=== PATIENT | female | born 1970 | race Caucasian/White ===

== ENCOUNTER → 2018-04-25 06:33 | Outpatient (CLI) | payer BC, SELFPAY ==
[2018-04-28 12:01] LABS: Cancer Antigen 125 13.1 U/mL (0.0-38.1)
== END ==
PROVIDERS: Family Provider Preventive Medicine Occupational Medicine; PCP Preventive Medicine Occupational Medicine; Visit Provider Internal Medicine Medical Oncology
DX: C56.2 Malignant neoplasm of left ovary (principal)
CPT/HCPCS: 36415; 86304

== ENCOUNTER → 2018-05-18 16:31 | Outpatient (CLI) | payer BC, SELFPAY ==
--- NOTE | 2018-05-18 16:33 | BI_ITS ---
MAMMOGRAPHY - BILATERAL SCREENING 3-D ANIVAL SYNTHESIS REASON FOR EXAM: Female, 47 years old. Bilateral Screening 3-D tomosynthesis PERTINENT HISTORY: No significant family history. TECHNIQUE: 2-D mammograms and 3-D Anival synthesis of the breast (s) were performed. CAD was performed. COMPARISON: 08/05/2016 FINDINGS: The breast composition is composed of scattered fibroglandular density. Scattered benign calcifications are seen. No dense spiculated masses or suspicious microcalcifications are identified. No architectural distortion is identified. There is no skin thickening or retraction. There has been no significant change since the prior study. BI/SCREENING MAMM (CAD), BILAT IMPRESSION: No mammographic signs of malignancy. Routine yearly mammograms recommended. ASSESSMENT CATEGORY: BIRADS Category 2: Benign. A letter regarding these results will be sent to the patient by the facility within 30 days. FOLLOW UP RECOMMENDATION: Yearly follow up mammogram recommended. (A) Approximately 10% of breast cancers are not detected by mammography. A normal mammogram should not delay biopsy of a clinically suspicious abnormality. Electronically Signed: Waldo Boston MD at 7:44 EDT , Service support ,
== END ==
PROVIDERS: Family Provider Physician Assistant; PCP Physician Assistant; Visit Provider Internal Medicine Medical Oncology
DX: Z12.31 Encounter for screening mammogram for malignant neoplasm of breast (principal)
CPT/HCPCS: 77063; 77067

== ENCOUNTER → 2019-06-12 17:30 | Outpatient (CLI) | payer BC, SELFPAY ==
--- NOTE | 2019-06-12 17:30 | BI_ITS ---
MAMMOGRAPHY - BILATERAL SCREENING 3-D TOMOSYNTHESIS REASON FOR EXAM: Female, 48 years old. Bilateral Screening 3-D tomosynthesis PERTINENT HISTORY: No significant family history. TECHNIQUE: 2-D mammograms and 3-D Tomosynthesis of the breast (s) were performed. CAD was performed. COMPARISON: 05/18/2018, 08/05/2016, 08/04/2015 FINDINGS: The breast composition is composed of scattered fibroglandular density. Unremarkable bilateral breast parenchyma are seen. No dense spiculated masses or suspicious microcalcifications are identified. No architectural distortion is identified. There is no skin thickening or retraction. There has been no significant change since the prior study. BI/SCREEN MAMM (CAD) W/ANIVAL BILAT IMPRESSION: No mammographic signs of malignancy. Routine yearly mammograms recommended. ASSESSMENT CATEGORY: BIRADS Category 1: Negative. A letter regarding these results will be sent to the patient by the facility within 30 days. FOLLOW UP RECOMMENDATION: Yearly follow up mammogram recommended. (A) Approximately 10% of breast cancers are not detected by mammography. A normal mammogram should not delay biopsy of a clinically suspicious abnormality. Electronically Signed: Jesse Gutierrez MD at 15:58 EDT Tel [phone], Service support ,
== END ==
PROVIDERS: Family Provider Physician Assistant; PCP Physician Assistant; Referring Provider Internal Medicine Medical Oncology; Visit Provider Internal Medicine Medical Oncology
DX: Z12.31 Encounter for screening mammogram for malignant neoplasm of breast (principal)
CPT/HCPCS: 77063; 77067

== ENCOUNTER → 2019-06-20 06:43 | Outpatient (CLI) | payer BC, SELFPAY ==
[2019-06-21 13:03] LABS: Cancer Antigen 125 15.5 U/mL (0.0-38.1)
== END ==
PROVIDERS: Internal Medicine Medical Oncology; Referring Provider Urology; Visit Provider Urology
DX: C56.9 Malignant neoplasm of unspecified ovary (principal)
CPT/HCPCS: 36415; 86304

== ENCOUNTER → 2020-04-18 11:42 | Outpatient (CLI) | payer BC, SELFPAY ==
[2019-06-28 16:02] VITALS: BMI 30.4
[2020-04-18 15:12] LABS: ALB/GLOB Ratio 0.9 RATIO (0.9-2.4); AST(SGOT) 17 U/L (15-37); Alanine Aminotransfer ALT/SGPT 29 U/L (13-56); Albumin, Serum 3.7 g/dL (3.2-5.0); Alkaline Phosphatase 55 U/L (45-117); Anion Gap 4 (5-15); BUN 11 mg/dL (7-18); BUN/Creat Ratio 13.6 RATIO (10-20); Calcium,Total 9.5 mg/dL (8.5-10.1); Chloride 105 mmol/L (98-107); Cholesterol 213 mg/dL (200); Creatinine, Serum 0.81 mg/dL (0.55-1.02); EST Glomerular Filtration Rate 80 mL/min (>60); Est Glom Filt Rate - Afr Amer 96 mL/min (>60); Globulin 4.1 g/dL (2.2-4.2); Glucose 90 mg/dL (74-106); High Density Lipoprotein 55 mg/dL; Potassium 4.3 mmol/L (3.5-5.1); Protein, Total 7.8 g/dL (6.4-8.2); Sodium Level 139 mmol/L (136-145); Triglycerides 139 mg/dL; Very Low Density Lipoprotein 28 mg/dL (5-40)
== END ==
PROVIDERS: Visit Provider Family Medicine
DX: Z13.220 Encounter for screening for lipoid disorders (principal); Z13.1 Encounter for screening for diabetes mellitus
CPT/HCPCS: 36415; 80053; 80061

== ENCOUNTER → 2020-06-18 16:22 | Outpatient (CLI) | payer BC, SELFPAY ==
[2019-06-28 16:02] VITALS: BMI 30.4
--- NOTE | 2020-06-18 16:22 | BI_ITS ---
MAMMOGRAPHY - BILATERAL SCREENING REASON FOR EXAM: Female, 49 years old. Routine annual screening examination. PERTINENT HISTORY: Non-contributory. TECHNIQUE: Digital bilateral breast anival (3D mammographic acquisition) in the CC and MLO projections. 2-D mediolateral oblique (MLO) and craniocaudad (CC) views of both breasts were obtained. CAD: Full Field Digital Mammography with Computer Added Detection was performed. COMPARISON: Comparison is made with prior study dated 06/12/2019 and 05/18/2018. FINDINGS: Breast Composition: There are scattered areas of fibroglandular density. There are no dominant masses or suspicious calcifications. No other significant abnormalities are identified. There has been no significant change since the prior study. BI/SCREEN MAMM (CAD) W/ANIVAL BILAT IMPRESSION: Stable bilateral screening mammogram. Yearly follow-up mammogram recommended. (A) ASSESSMENT CATEGORY: BIRADS Category 1: Negative. A letter regarding these results will be sent to the patient by the facility within 30 days. Approximately 10% of breast cancers are not detected by mammography. A normal mammogram should not delay biopsy of a clinically suspicious abnormality. [id number] Electronically Signed: Adan Neville, at 8:05 EDT , Service support ,
== END ==
PROVIDERS: PCP Family Medicine; Referring Provider Internal Medicine Medical Oncology; Visit Provider Internal Medicine Medical Oncology
DX: Z12.31 Encounter for screening mammogram for malignant neoplasm of breast (principal); C56.9 Malignant neoplasm of unspecified ovary
CPT/HCPCS: 77063; 77067

== ENCOUNTER → 2020-06-28 09:15 | Outpatient (CLI) | payer BC, SELFPAY ==
[2019-06-28 16:02] VITALS: BMI 30.4
[2020-06-28 10:12] LABS: Absolute Lymphocyte Count 1.79 X10^3/uL (0.83-4.51); Absolute Neutrophil Count 2.3 X10^3/uL (2.0-7.7); Basophil# 0.02 X10^3/uL; Basophil% 0.4 % (0-1); Eosinophil# 0.05 X10^3/uL; Eosinophils% 1.1 % (0-5); Hematocrit 42.8 % (37-47); Hemoglobin 14.2 g/dL (12.0-15.0); Lymphocyte # 1.79 X10^3/ul (4.0); Mean Corp Hgb Conc 33.2 g/dL (32-36); Mean Corpuscular Hgb 30.2 pg (27.0-32.0); Mean Corpuscular Volume 91.1 fL (81-99); Mean Platelet Vol. 10.7 fl (6.2-12.0); Monocyte# 0.36 X10^3/uL; NRBC Flagged by Analyzer 0 % (0-5); Neutrophil # 2.25 X10^3/uL (2.7-7.7); Neutrophil % 50.3 % (47-70); Platelet Count 282 K/mm3 (150-450); RBC Distribution Width SD 40.2 fl (35.1-43.9); White Blood Count 4.5 K/mm3 (4.4-11.0)
[2020-06-28 10:48] LABS: AST(SGOT) 13 U/L (15-37); Alanine Aminotransfer ALT/SGPT 30 U/L (13-56); Albumin, Serum 3.9 g/dL (3.2-5.0); Alkaline Phosphatase 58 U/L (45-117); Anion Gap 6 (5-15); BUN 13 mg/dL (7-18); BUN/Creat Ratio 15.2 RATIO (10-20); Calcium,Total 9.2 mg/dL (8.5-10.1); Chloride 108 mmol/L (98-107); Creatinine, Serum 0.86 mg/dL (0.55-1.02); EST Glomerular Filtration Rate 74 mL/min (>60); Est Glom Filt Rate - Afr Amer 90 mL/min (>60); Globulin 3.9 g/dL (2.2-4.2); Glucose 90 mg/dL (74-106); LDH 146 U/L (84-246); Protein, Total 7.8 g/dL (6.4-8.2); Sodium Level 142 mmol/L (136-145)
[2020-06-28 17:19] LABS: Xtra Tube EP Lab EXTRA TUBE
[2020-06-29 08:15] LABS: Cancer Antigen 125 14.5 U/mL (0.0-38.1)
== END ==
PROVIDERS: PCP Family Medicine; Referring Provider Internal Medicine Medical Oncology; Visit Provider Internal Medicine Medical Oncology
DX: C56.9 Malignant neoplasm of unspecified ovary (principal)
CPT/HCPCS: 36415; 80053; 83615; 85025; 86304

== ENCOUNTER → 2020-08-01 | Outpatient (CLI) | payer BC, SELFPAY ==
[2019-06-28 16:02] VITALS: BMI 30.4
[2020-08-14 15:14] LABS: HPV APTIMA, High Risk Negative; HPV Reflexed? YES, CHARGE PATIENT
== END | disposition home or self-care (01) ==
LOC: LABSPEC 15:31
PROVIDERS: PCP Family Medicine; Visit Provider Student in an Organized Health Care Education/Training Program
DX: Z12.4 Encounter for screening for malignant neoplasm of cervix (principal); Z85.43 Personal history of malignant neoplasm of ovary
CPT/HCPCS: 87624; 88175; G0145

== ENCOUNTER → 2021-04-22 06:23 | Outpatient (CLI) | payer BC, SELFPAY ==
[2019-06-28 16:02] VITALS: BMI 30.4
[2021-04-22 07:43] LABS: ALB/GLOB Ratio 1.1 RATIO (0.9-2.4); AST(SGOT) 22 U/L (15-37); Alanine Aminotransfer ALT/SGPT 36 U/L (13-56); Alkaline Phosphatase 59 U/L (45-117); Anion Gap 5 (5-15); BUN 14 mg/dL (7-18); BUN/Creat Ratio 15.9 RATIO (10-20); Calcium,Total 9.4 mg/dL (8.5-10.1); Chloride 106 mmol/L (98-107); Cholesterol 265 mg/dL (200); Creatinine, Serum 0.88 mg/dL (0.55-1.02); EST Glomerular Filtration Rate 72 mL/min (>60); Est Glom Filt Rate - Afr Amer 87 mL/min (>60); Globulin 3.6 g/dL (2.2-4.2); Glucose 98 mg/dL (74-106); High Density Lipoprotein 61 mg/dL; Potassium 3.9 mmol/L (3.5-5.1); Protein, Total 7.6 g/dL (6.4-8.2); Sodium Level 141 mmol/L (136-145); Triglycerides 177 mg/dL; Very Low Density Lipoprotein 35 mg/dL (5-40)
== END ==
PROVIDERS: PCP Family Medicine; Referring Provider Family Medicine; Visit Provider Family Medicine
DX: E66.9 Obesity, unspecified (principal)
CPT/HCPCS: 36415; 80053; 80061

== ENCOUNTER → 2021-06-24 06:35 | Outpatient (CLI) | payer BC, SELFPAY ==
[2021-06-24 07:14] LABS: Absolute Lymphocyte Count 2.37 X10^3/uL (0.83-4.51); Absolute Neutrophil Count 2.3 X10^3/uL (2.0-7.7); Basophil# 0.03 X10^3/uL; Basophil% 0.6 % (0-1); Eosinophil# 0.09 X10^3/uL; Eosinophils% 1.7 % (0-5); Hemoglobin 14.1 g/dL (12.0-15.0); Lymphocyte # 2.37 X10^3/ul (0.83-4.51); Lymphocyte % 45.7 % (19-41); Mean Corp Hgb Conc 32.8 g/dL (32-36); Mean Corpuscular Hgb 30.1 pg (27.0-32.0); Mean Corpuscular Volume 91.7 fL (81-99); Mean Platelet Vol. 10.7 fl (6.2-12.0); Monocyte% 7.7 % (0-10); NRBC Flagged by Analyzer 0 % (0-5); Neutrophil # 2.29 X10^3/uL (2.7-7.7); Neutrophil % 44.1 % (47-70); Platelet Count 288 K/mm3 (150-450); Red Blood Count 4.69 M/mm3 (4.2-5.4); White Blood Count 5.2 K/mm3 (4.4-11.0)
[2021-06-24 07:41] LABS: ALB/GLOB Ratio 1.1 RATIO (0.9-2.4); AST(SGOT) 17 U/L (15-37); Alanine Aminotransfer ALT/SGPT 35 U/L (13-56); Alkaline Phosphatase 59 U/L (45-117); Anion Gap 5 (5-15); BUN 14 mg/dL (7-18); BUN/Creat Ratio 16.7 RATIO (10-20); Calcium,Total 9.1 mg/dL (8.5-10.1); Chloride 107 mmol/L (98-107); Creatinine, Serum 0.84 mg/dL (0.55-1.02); EST Glomerular Filtration Rate 76 mL/min (>60); Est Glom Filt Rate - Afr Amer 92 mL/min (>60); Globulin 3.8 g/dL (2.2-4.2); Glucose 98 mg/dL (74-106); LDH 169 U/L (84-246); Potassium 3.9 mmol/L (3.5-5.1); Protein, Total 7.8 g/dL (6.4-8.2); Sodium Level 139 mmol/L (136-145)
[2021-06-25 08:25] LABS: Cancer Antigen 125 15.8 U/mL (0.0-38.1)
== END ==
PROVIDERS: PCP Family Medicine; Referring Provider Internal Medicine Medical Oncology; Visit Provider Internal Medicine Medical Oncology
DX: Z85.43 Personal history of malignant neoplasm of ovary (principal)
CPT/HCPCS: 36415; 80053; 83615; 85025; 86304

== ENCOUNTER 2021-12-15 12:21 | Outpatient (CLI) | payer OTHER, SELFPAY ==
--- NOTE | 2021-12-15 12:23 | BI_ITS ---
MAMMOGRAPHY - BILATERAL SCREENING REASON FOR EXAM: Female, 50 years old. Routine annual screening examination. PERTINENT HISTORY: Non-contributory. History of ovarian cancer. TECHNIQUE: Digital bilateral breast anival (3D mammographic acquisition) in the CC and MLO projections. 2-D mediolateral oblique (MLO) and craniocaudad (CC) views of both breasts were obtained. CAD: Full Field Digital Mammography with Computer Added Detection was performed. COMPARISON: Comparison is made with prior study dated 06/18/2020 and 06/12/2019. FINDINGS: Breast Composition: There are scattered areas of fibroglandular density. There are no dominant masses or suspicious calcifications. No other significant abnormalities are identified. There has been no significant change since the prior study. BI/SCRN MAMM (CAD)W/ANIVAL BILAT IMPRESSION: Stable bilateral screening mammogram. Yearly follow-up mammogram recommended. (A) ASSESSMENT CATEGORY: BIRADS Category 1: Negative. A letter regarding these results will be sent to the patient by the facility within 30 days. Approximately 10% of breast cancers are not detected by mammography. A normal mammogram should not delay biopsy of a clinically suspicious abnormality. [id number] Electronically Signed: Adan Neville MD at 13:02 EST ,
== END 2021-12-15 23:59 | disposition home or self-care (01) ==
LOC: OPBI 12:21
PROVIDERS: PCP Family Medicine; Visit Provider Student in an Organized Health Care Education/Training Program
DX: Z12.31 Encounter for screening mammogram for malignant neoplasm of breast (principal); Z85.43 Personal history of malignant neoplasm of ovary
CPT/HCPCS: 77063; 77067

== ENCOUNTER 2022-06-23 15:22 | Outpatient (CLI) | payer OTHER, SELFPAY ==
[2022-06-23 15:56] LABS: Absolute Lymphocyte Count 2.57 X10^3/uL (0.83-4.51); Absolute Neutrophil Count 2.7 X10^3/uL (2.0-7.7); Basophil# 0.04 X10^3/uL; Basophil% 0.7 % (0-1); Eosinophil# 0.06 X10^3/uL; Hematocrit 42.8 % (37-47); Hemoglobin 14.6 g/dL (12.0-15.0); Lymphocyte # 2.57 X10^3/ul (0.83-4.51); Mean Corp Hgb Conc 34.1 g/dL (32-36); Mean Corpuscular Hgb 30.7 pg (27.0-32.0); Mean Corpuscular Volume 89.9 fL (81-99); Mean Platelet Vol. 10.5 fl (6.2-12.0); Monocyte# 0.47 X10^3/uL; NRBC Flagged by Analyzer 0 % (0-5); Neutrophil # 2.69 X10^3/uL (2.7-7.7); Neutrophil % 46.1 % (47-70); Platelet Count 295 K/mm3 (150-450); RBC Distribution Width CV 11.7 % (11.6-14.6); RBC Distribution Width SD 38.2 fl (35.1-43.9); Red Blood Count 4.76 M/mm3 (4.2-5.4); White Blood Count 5.8 K/mm3 (4.4-11.0)
[2022-06-23 16:17] LABS: ALB/GLOB Ratio 1.1 RATIO (0.9-2.4); AST(SGOT) 15 U/L (15-37); Alanine Aminotransfer ALT/SGPT 33 U/L (13-56); Alkaline Phosphatase 55 U/L (45-117); Anion Gap 5 (5-15); BUN 18 mg/dL (7-18); BUN/Creat Ratio 20.4 RATIO (10-20); Calcium,Total 9.5 mg/dL (8.5-10.1); Chloride 107 mmol/L (98-107); Creatinine, Serum 0.88 mg/dL (0.55-1.02); EST Glomerular Filtration Rate 71 mL/min (>60); Est Glom Filt Rate - Afr Amer 86 mL/min (>60); Globulin 3.8 g/dL (2.2-4.2); Glucose 97 mg/dL (74-106); LDH 164 U/L (84-246); Protein, Total 7.8 g/dL (6.4-8.2); Sodium Level 141 mmol/L (136-145)
== END 2022-06-23 23:59 | disposition home or self-care (01) ==
LOC: LAB 15:24
PROVIDERS: PCP Family Medicine; Referring Provider Internal Medicine Medical Oncology; Visit Provider Internal Medicine Medical Oncology
DX: Z85.43 Personal history of malignant neoplasm of ovary (principal)
CPT/HCPCS: 36415; 80053; 83615; 85025; 86304

== ENCOUNTER → 2023-06-23 | Outpatient (CLI) | payer OTHER, SELFPAY ==
[2023-06-23 09:46] LABS: Absolute Lymphocyte Count 1.98 X10^3/uL (0.83-4.51); Absolute Neutrophil Count 2.2 X10^3/uL (2.0-7.7); Basophil# 0.03 X10^3/uL; Basophil% 0.6 % (0-1); Eosinophil# 0.06 X10^3/uL; Eosinophils% 1.3 % (0-5); Hematocrit 41.2 % (37-47); Hemoglobin 14.1 g/dL (12.0-15.0); Lymphocyte # 1.98 X10^3/ul (0.83-4.51); Lymphocyte % 42.9 % (19-41); Mean Corp Hgb Conc 34.2 g/dL (32-36); Mean Corpuscular Hgb 31.2 pg (27.0-32.0); Mean Corpuscular Volume 91.2 fL (81-99); Mean Platelet Vol. 10.5 fl (6.2-12.0); Monocyte# 0.34 X10^3/uL; Monocyte% 7.4 % (0-10); NRBC Flagged by Analyzer 0 % (0-5); Neutrophil % 47.6 % (47-70); Platelet Count 287 K/mm3 (150-450); RBC Distribution Width SD 40.4 fl (35.1-43.9); Red Blood Count 4.52 M/mm3 (4.2-5.4); White Blood Count 4.6 K/mm3 (4.4-11.0)
[2023-06-23 10:19] LABS: AST(SGOT) 14 U/L (15-37); Alanine Aminotransfer ALT/SGPT 30 U/L (13-56); Albumin, Serum 3.8 g/dL (3.2-5.0); Alkaline Phosphatase 56 U/L (45-117); Anion Gap 5 (5-15); BUN 12 mg/dL (7-18); BUN/Creat Ratio 14.1 RATIO (10-20); Calcium,Total 9.2 mg/dL (8.5-10.1); Chloride 107 mmol/L (98-107); Creatinine, Serum 0.85 mg/dL (0.55-1.02); EST Glomerular Filtration Rate 74 mL/min (>60); Est Glom Filt Rate - Afr Amer 89 mL/min (>60); Globulin 3.7 g/dL (2.2-4.2); Glucose 88 mg/dL (74-106); LDH 145 U/L (84-246); Potassium 4.2 mmol/L (3.5-5.1); Protein, Total 7.5 g/dL (6.4-8.2); Sodium Level 140 mmol/L (136-145)
[2023-06-24 08:11] LABS: Cancer Antigen 125 13.1 U/mL (0.0-38.1)
== END | disposition home or self-care (01) ==
LOC: LAB 08:32
PROVIDERS: Referring Provider Internal Medicine Medical Oncology; Visit Provider Internal Medicine Medical Oncology
DX: Z85.43 Personal history of malignant neoplasm of ovary (principal)
CPT/HCPCS: 36415; 80053; 83615; 85025; 86304

== ENCOUNTER → 2024-06-13 | Outpatient (CLI) | payer OTHER, SELFPAY ==
[2024-06-13 07:31] LABS: Absolute Lymphocyte Count 2.26 X10^3/uL (0.83-4.51); Absolute Neutrophil Count 2.2 X10^3/uL (2.0-7.7); Basophil# 0.05 X10^3/uL; Eosinophil# 0.15 X10^3/uL; Hematocrit 41.3 % (37-47); Hemoglobin 13.8 g/dL (12.0-15.0); Lymphocyte # 2.26 X10^3/ul (0.83-4.51); Lymphocyte % 45.4 % (19-41); Mean Corp Hgb Conc 33.4 g/dL (32-36); Mean Corpuscular Volume 89.8 fL (81-99); Mean Platelet Vol. 10.6 fl (6.2-12.0); Monocyte# 0.34 X10^3/uL; Monocyte% 6.8 % (0-10); NRBC Flagged by Analyzer 0 % (0-5); Neutrophil # 2.17 X10^3/uL (2.7-7.7); Neutrophil % 43.6 % (47-70); Platelet Count 266 K/mm3 (150-450); RBC Distribution Width SD 39.7 fl (35.1-43.9)
[2024-06-13 07:43] LABS: AST(SGOT) 16 U/L (15-37); Alanine Aminotransfer ALT/SGPT 26 U/L (13-56); Albumin, Serum 3.8 g/dL (3.2-5.0); Alkaline Phosphatase 63 U/L (45-117); Anion Gap 6 (5-15); BUN 17 mg/dL (7-18); BUN/Creat Ratio 19.8 RATIO (10-20); Calcium,Total 9.2 mg/dL (8.5-10.1); Chloride 108 mmol/L (98-107); Creatinine, Serum 0.86 mg/dL (0.55-1.02); EST Glomerular Filtration Rate 73 mL/min (>60); Est Glom Filt Rate - Afr Amer 88 mL/min (>60); Globulin 3.8 g/dL (2.2-4.2); Glucose 102 mg/dL (74-106); LDH 196 U/L (84-246); Protein, Total 7.6 g/dL (6.4-8.2); Sodium Level 141 mmol/L (136-145)
[2024-06-13 15:09] LABS: Xtra Tube EP Lab EXTRA TUBE
[2024-06-14 04:08] LABS: Cancer Antigen 125 11.9 U/mL (0.0-38.1)
== END | disposition home or self-care (01) ==
PROVIDERS: Referring Provider Internal Medicine Medical Oncology; Visit Provider Internal Medicine Medical Oncology
DX: Z85.43 Personal history of malignant neoplasm of ovary (principal)
CPT/HCPCS: 36415; 80053; 83615; 85025; 86304

== ENCOUNTER → 2025-01-04 | Outpatient (CLI) | payer OTHER, SELFPAY ==
--- NOTE | 2025-01-04 14:12 | BI_ITS ---
PROCEDURE: SCRN MAMM (CAD)W/ANIVAL BILAT REASON FOR EXAM: F, Age 54 y/o , SCREENING. No family history of breast cancer. Personal history of ovarian cancer in her late 30s. TECHNIQUE: Bilateral screening digital breast tomosynthesis with 2D and 3D images. Computer aided detection. COMPARISON: 12/15/2021 FINDINGS: There are scattered areas of fibroglandular density. No suspicious masses, areas of developing architectural distortion, or suspicious calcifications. BI/SCRN MAMM (CAD)W/ANIVAL BILAT IMPRESSION: There is no mammographic evidence of malignancy. BI-RADS 1: NEGATIVE. RECOMMEND ANNUAL MAMMOGRAPHIC SCREENING. Follow-up code: Routine Follow-up The patient will be notified of the results by letter. Reading Location: [id number]
[2025-01-04 19:08] LABS: Hemoglobin A1c 5.7 % (<=5.6)
[2025-01-04 19:11] LABS: ALB/GLOB Ratio 1.5 RATIO (0.9-2.4); AST(SGOT) 26 U/L (<=31); Alanine Aminotransfer ALT/SGPT 40 U/L (<=34); Albumin, Serum 4.4 g/dL (3.5-5.0); Alkaline Phosphatase 54 U/L (35-104); Anion Gap 13 (5-15); BUN 12 mg/dL (4-19); BUN/Creat Ratio 14.6 RATIO (10-20); Calcium,Total 9.6 mg/dL (7.6-11.0); Chloride 103 mmol/L (98-108); Cholesterol 219 mg/dL (<=200); Creatinine, Serum 0.82 mg/dL (0.70-1.20); EST Glomerular Filtration Rate 83 (>60); Glucose 90 mg/dL (70-99); High Density Lipoprotein 52 mg/dL; Low Density Lipoprotein Calc. 133 mg/dL; Protein, Total 7.3 g/dL (5.9-8.4); Sodium Level 140 mmol/L (133-145); Total Bilirubin 0.33 mg/dL (0.00-1.30); Triglycerides 174 mg/dL; Very Low Density Lipoprotein 35 mg/dL (5-40); Vitamin D,25 Hydroxy 38.4 ng/mL (30-100); cholesterol:hdl ratio screen 4.24
[2025-01-11 13:31] LABS: HPV Reflexed? YES, CHARGE PATIENT
== END | disposition home or self-care (01) ==
PROVIDERS: PCP Family Medicine; Referring Provider Family Medicine; Visit Provider Family Medicine
DX: Z12.31 Encounter for screening mammogram for malignant neoplasm of breast (principal); Z12.4 Encounter for screening for malignant neoplasm of cervix; E78.2 Mixed hyperlipidemia; Z13.1 Encounter for screening for diabetes mellitus
CPT/HCPCS: 36415; 77063; 77067; 80053; 80061; 82306; 83036; 84443; 87624; 88175; G0145

== ENCOUNTER → 2025-06-08 | Outpatient (CLI) | payer OTHER, SELFPAY ==
--- OUTSIDE RECORDS SUMMARY | 2025-06-08 09:03 | XMS RPT_ITS | CCD ---
Author Organization [facility] Inform ion Partnership [employer] [facility] Care Team Providers Care Monologist Name Role Phone Venkat Faria MD Unavailable PAIGE BACA Unavailable Unavailable CHACE CONTE Unavailable Unavailable Provider, External Unavailable [phone] Kirit Knowles Primary Care Provider Katerine White Unavailable Unavailable Felicity Stewart Unavailable Unavailable Ramesh Sanchez Unavailable Dr. Venkat Faria Attending Provider Care Physician, No Primary Primary Care Provider Unavailable Care Physician, No Primary Referring Provider Un available Care Physician, No Primary Primary Care Unava ilable Care Physician, No Primary Referring Unava ilable Venkat Faria Attending Unavailable Care Physician, No Primary Primary Care Unava ilable Venkat Faria Attending Unavailable Venkat Faria Referring Unavailable Anita Aden Primary Care Unavailable Anita Aden Attending Unavailable Anita Aden Referring Unavailable Anita Aden MD Primary Care Provider [phone] Anita Aden MD Attending Provider [phone] Anita Aden MD Referring Provider [phone] Medications Current Medications Medication Drug Class(es) Dates Sig (Normalized) Sig (Original) aspirin 81 mg delayed release oral tablet (4 sources) Nonsteroidal Anti-inflammatory Drug Start: 01-18-2017 take 1 tablet by mouth once daily Aspirin 81 MG tablet,delayed release (/EC) Active 81 mg PO DAILY January 18, 2017 12:00am fluticasone propionate 0.05 mg/actuat metered dose nasal spray (3 sources) Corticosteroid Start: 07-02-2021 take 50 ug nasal route once daily as needed Fluticasone Propionate (Flonase Allergy Relief) 50 mcg/actuation spray,suspension Active 2 NMA INTRANASAL DAILY as needed for allergy symptoms July 02, 2021 12:00am administer into each nostril Start: 07-02-2021 take 1 spray(s) nasa l route once daily Fluticasone Propionate (Flonase Allergy Relief) 50 mcg/actuation spray,suspension Active 2 SPRAY INTRANASAL DAILY July 02, 2021 12:00am administer into each nostril loratadine 10 mg oral tablet (3 sources) Start: 07-02-2021 take 1 tablet by mouth once daily as needed Loratadine (Claritin) 10 mg tablet Active 10 mg PO DAILY as needed for allergy symptoms July 02, 2021 12:00am Multivitamin (Multiple Vitamins) 1 EACH tablet (3 sources) Start: 01-18-2017 take 1 tablet by mouth once daily Multivitamin (Multiple Vitamins) 1 EACH tablet Active 1 NMA PO DAILY January 18, 2017 12:00am Start: 01-18-2017 take 1 tablet by christine th once daily Multivitamin (Multiple Vitamins) 1 EACH tablet Active 1 EACH PO DAILY January 18, 2017 12:00am Completed/Discontinued Medications Medication Drug Class(es) Dates Sig (Normalized) Sig (Original) ascorbic acid 500 mg oral tablet (4 sources) Start: 01-18-2017 End: 05-04-2017 take 1 tablet by mouth once daily Ascorbic Acid (Vitamin C) 500 MG tablet Discontinued 500 mg PO DAILY January 18, 2017 12:00am May 04, 2017 3:18pm estradiol 1 mg oral tablet (2 sources) Estrogen End: 09-25-2015 take 1 tablet by mouth once daily ESTRADIOL 1 MG TABS One tablet by mouth daily ESTRADIOL [id number] Miguel Angel Sloan DO MULTIPLE VITAMIN (1 source) take 1 tablet by mouth once daily MULTI VITAMIN DAILY TABS One tablet by mouth daily. 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 Problems Active Problems Problem Classification Problem Date Documented Da te Episodic/Chronic Cancer of ovary (4 sources) Malignant epithelial tumor of ovary; 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] 11-24-2012 Chronic Other and unspecified benign neoplasm (1 source) History of polyp of colon; Translations: [History of colon polyps] Episodic Other and unspecified benign neoplasm (3 sources) Benign neoplasm of soft tissue; Translations: [Melanocytic nevi, unspecified] 05-04-2017 Episodic Other screening for suspected conditions (not mental disorders or infectious disease) (1 source) Encounter for screening mammogram for malignant neoplasm of breast; Translations: [Encounter for screening mammogram for malignant neoplasm of breast] Onset: 01-14-2025 Episodic Phlebitis; thrombophlebitis and thromboembolism (1 source) 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 CA125 is normal.No evidence of disease clinically.Labs reviewed, within normal limits. Results Test Name Value Interpretation Reference Range Facility PAP IG HPV HR APTIMAon 01-11 ORDER Normal [facility] Comment on above: Order Comment: Order Date: 12/23/24 Order Info: [id number] - A1C Result Comment: IGP, Aptima HPV Interpretation: NEGATIVE FOR INTRAEPITHELIAL LESION AND MALIGNANCY CELLULAR CHANGES ASSOCIATED WITH ATROPHY ARE PRESENT. Specimen Adequacy: Satisfactory for evaluation. Endocervical and/or squamous metaplastic cells (endocervical component) are present. Comments: The pap smear is a screening test designated to aid in the detection of pre-malignant and malignant conditions of the uterine cervix. It is not a diagnostic procedure and should not be used as the sole means of detecting cervical cancer. Both false-positive and false-negative reports do occur. This liquid based ThinPrep(R) pap test was screened with the use of an image guided system. Performed by Jovanni Painting, Industrial Controller ([employer]) This nucleic acid amplification test detects fourteen high-risk HPV types (16,18,31,33,35,39,45,51,52,56,58,59,66,68) without differentiation. HPV RESULTS: HPV Aptima: Negative [facility]. ORIGINAL REPORT ON FILE IN LAB CONTAINS ADDITIONAL TEST SITE INFORMATION. Performed By: #### L 501.9520, L501.9985, L500.4050, L500.4100 #### [facility] [address] [place], [address] Anion gap in Serum or Plasma Ordered By: Anita Aden on 01-04-2025 Anion gap [Moles/Vol] 13 mmol/L 5-15 [facility] BUN/creatinine ratioOrdered By: Anita Aden on 01-04-2025 Urea nitrogen/Creatinine [Mass ratio] 14.6 mg/mg 10- [facility] Bilirubin, totalOrdered By: Anita Aden on 01-04-2025 Bilirubin [Mass/Vol] 0.33 mg/dL 0.00-1.30 [facility] Breast imaging reportOrdered By: Keesha Freeman on 01-04-2025 Study report [facility] Imaging Services [address] [place] [address] SCRN MAMM (CAD)W/ANIVAL BILAT MR#: [id number] Acct: [id number] Name: KRYSTAL LANGLEY Rep #: [id number] : 1970 F 54 From: Ree Freeman MD PCP: Dr. Anita Aden MD Status: REG CL I Study:SCRN MAMM (CAD)W/ANIVAL BILAT Date of Exa m: 01/04/25 Exam# [id number] Ordering Dr: Cathy Aden MD PROCEDURE: SCRN MAMM (CAD)W/ANIVAL BILAT REASON FOR EXAM: F, Age 54 y/o , SCREENING. No family history of breast cancer. Personal history of ovarian cancer in her late 30s. TECHNIQUE: Bilateral screening digital breast tomosynthesis with 2D and 3D images. Computeraided detection. COMPARISON: 12/15/2021 FINDINGS: There are scattered areas of fibroglandular density. No suspicious masses, areas of developing architectural distortion, or suspicious calcifications. BI/SCRN MAMM (CAD)W/ANIVAL BILAT IMPRESSION: There is no mammographic evidence of malignancy. BI-RADS 1: NEGATIVE. RECOMMEND ANNUAL MAMMOGRAPHIC SCREENING. Follow-up code: Routine Follow-up The patient will be notified of the results by letter. Reading Location: [facility] CC: Dr. Anita Aden MD ~ Clinical Care Manager: Signed [facility] Calculated very low density lipoprotein (VLDL) cholesterol measurementOrdered By: Anita Aden on 01-04-2025 VLDL Cholesterol 35 mg/dL 5-40 [facility] Carbon dioxide, total [Moles /volume] in Central venous bloodOrdered By: Anita Aden on 01-04-2025 CO2 [Moles/Vol] 24.0 mmol/L 21.0-32.0 [facility] Chloride assayOrdered By: Isabela Aden on 01-04-2025 Chloride [Moles/Vol] 103 mmol/L 98-108 [facility] Comprehensive Metabolic Prof ilon 01-04-2025 Albumin [Mass/Vol] 4.4 g/dL Normal 3.5-5.[address] [facility] Comment on above: Order Comment: Order Date: 12/23/24 Order Info: [id number] - CMP Order Info: [id number] - LIPID Order Info: 3 - TSH Performed By: #### L 501.9520, L501.9985, L500.4050, L500.4100 #### [facility] [address] [place], [address] Albumin/Globulin [Mass ratio] 1.5 {ratio} Normal 0.9-2.4 [facility] Comment on above: Order Comment: Order Date: 12/23/24 Order Info: 0786- - CMP Order Info: [id number] - LIPID Order Info: 3 - TSH Performed By: #### L 501.9520, L501.9985, L500.4050, L500.4100 #### [facility] [address] [place], [address] ALK PHOS 54 U/L Normal 35-104 [facility] Comment on above: Order Comment: Order Date: 12/23/24 Order Info: 0786- - CMP Order Info: [id number] - LIPID Order Info: 3 - TSH Performed By: #### L 501.9520, L501.9985, L500.4050, L500.4100 #### [facility] [address] [place], [address] ALT [Catalytic activity/Vol] 40 U/L High <=34 [facility] Comment on above: Order Comment: Order Date: 12/23/24 Order Info: [id number] - CMP Order Info: [id number] - LIPID Order Info: [id number] - TSH Performed By: #### L 501.9520, L501.9985, L500.4050, L500.4100 #### [facility] [address] [place], [address] AST [Catalytic activity/Vol] 26 U/L Normal <=31 [facility] Comment on above: Order Comment: Order Date: 12/23/24 Order Info: 0786-1 - CMP Order Info: [id number] - LIPID Order Info: 3 - TSH Performed By: #### L 501.9520, L501.9985, L500.4050, L500.4100 #### [facility] [address] [place], [address] Bilirubin [Mass/Vol] 0.33 mg/dL Normal 0.00-1.30 [facility] Comment on above: Order Comment: Order Date: 12/23/24 Order Info: 0786-1 - CMP Order Info: [id number] - LIPID Order Info: 3 - TSH Performed By: #### L 501.9520, L501.9985, L500.4050, L500.4100 #### [facility] [address] [place], [address] BUN/CRE 14.6 RATIO Normal 10-20 [facility] Comment on above: Order Comment: Order Date: 12/23/24 Order Info: 0786-1 - CMP Order Info: [id number] - LIPID Order Info: 3 - TSH Performed By: #### L 501.9520, L501.9985, L500.4050, L500.4100 #### [facility] [address] [place], [address] Calcium [Mass/Vol] 9.6 mg/dL Normal 7.6-11.[address] [facility] Comment on above: Order Comment: Order Date: 12/23/24 Order Info: 0786-1 - CMP Order Info: [id number] - LIPID Order Info: [id number] - TSH Performed By: #### L 501.9520, L501.9985, L500.4050, L500.4100 #### [facility] [address] [place], [address] Chloride [Moles/Vol] 103 mmol/L Normal 98-108 [facility] Comment on above: Order Comment: Order Date: 12/23/24 Order Info: 0786-1 - CMP Order Info: [id number] - LIPID Order Info: [id number] - TSH Performed By: #### L 501.9520, L501.9985, L500.4050, L500.4100 #### [facility] [address] [place], [address] CO2 [Moles/Vol] 24.0 mmol/L Normal 21.0-32.0 [facility] Comment on above: Order Comment: Order Date: 12/23/24 Order Info: 0786- - CMP Order Info: - LIPID Order Info: [id number] - TSH Performed By: #### L 501.9520, L501.9985, L500.4050, L500.4100 #### [facility] [address] [place], [place], [address] Creatinine [Mass/Vol] 0.82 mg/dL Normal 0.70-1.20 [facility] Comment on above: Order Comment: Order Date: 12/23/24 Order Info: 0786 - CMP Order Info: - LIPID Order Info: [id number] - TSH Performed By: #### L 501.9520, L501.9985, L500.4050, L500.4100 #### [facility] [address] [place], [address] GAP 13 Normal 5-15 [facility] Comment on above: Order Comment: Order Date: 12/23/24 Order Info: 0786-1 - CMP Order Info: [id number] - LIPID Order Info: [id number] - TSH Performed By: #### L 501.9520, L501.9985, L500.4050, L500.4100 #### [facility] [address] [place], [address] GFR/1.73 sq M.predicted among non-blacks MDRD (S/P/Bld) [Vol rate/Area] 83 mL/min/{1.73_m2} Normal >60 [facility] Comment on above: Order Comment: Order Date: 12/23/24 Order Info: 07 - CMP Order Info: - LIPID Order Info: [id number] - TSH Result Comment: mL/m in/1.73m2 CKD-EPI Creatinine Equation (2020) Performed By: #### L 501.9520, L501.9985, L500.4050, L500.4100 #### [facility] [address] [place], [address] Globulin (S) [Mass/Vol] 3.0 g/dL Normal 2.2-4.2 [facility] Comment on above: Order Comment: Order Date: 12/23/24 Order Info: [id number] - CMP Order Info: - LIPID Order Info: [id number] - TSH Performed By: #### L 501.9520, L501.9985, L500.4050, L500.4100 #### [facility] [address] [place], [address] Glucose [Mass/Vol] 90 mg/dL Normal 70-[address] [facility] Comment on above: Order Comment: Order Date: 12/23/24 Order Info: 0786 - CMP Order Info: - LIPID Order Info: [id number] - TSH Performed By: #### L 501.9520, L501.9985, L500.4050, L500.4100 #### [facility] [address] [place], [address] Potassium [Moles/Vol] 4.0 mmol/L Normal 3.3-5.1 [facility] Comment on above: Order Comment: Order Date: 12/23/24 Order Info: 0786 - CMP Order Info: - LIPID Order Info: [id number] - TSH Performed By: #### L 501.9520, L501.9985, L500.4050, L500.4100 #### [facility] [address] [place], [address] Sodium [Moles/Vol] 140 mmol/L Normal 133-[address] [facility] Comment on above: Order Comment: Order Date: 12/23/24 Order Info: 0786-1 - CMP Order Info: [id number] - LIPID Order Info: [id number] - TSH Performed By: #### L 501.9520, L501.9985, L500.4050, L500.4100 #### [facility] [address] [place], [place], [address] T PROT 7.3 g/dL Normal 5.9-8.4 [facility] Comment on above: Order Comment: Order Date: 12/23/24 Order Info: 0786-1 - CMP Order Info: [id number] - LIPID Order Info: 3016 - TSH Performed By: #### L 501.9520, L501.9985, L500.4050, L500.4100 #### [facility] [address] [place], [place], [address] Urea nitrogen [Mass/Vol] 12 mg/dL Normal 4-19 [facility] Comment on above: Order Comment: Order Date: 12/23/24 Order Info: 0786-1 - CMP Order Info: [id number] - LIPID Order Info: [id number] - TSH Performed By: #### L 501.9520, L501.9985, L500.4050, L500.4100 #### [facility] [address] [place], [place], [address] GFR/1.73 sq M.predicted brenda g non-blacks MDRD (S/P/Bld) [Vol rate/Area]Ordered By: Anita Aden on 01-04-2025 Estimated GFR (MDRD) Non-Af Amer 83 >60 [facility] Comment on above: mL/min/1.73m2 CKD-EP I Creatinine Equation (2020) Hemoglobin A1con 01-04-2025 HbA1c (Bld) [Mass fraction] 5.7 % Normal <=5.6 [facility] Comment on above: Order Comment: Order Date: 12/23/24 Order Info: [id number] - A1C Performed By: #### L 501.9520, L501.9985, L500.4050, L500.4100 #### [facility] [address] [place], [place], [address] Hemoglobin A1c percentageOrd ered By: Anita Aden on 01-04-2025 HbA1c (Bld) [Mass fraction] 5.7 % >5.7 [facility] Image-guided liquid-based Pa pOrdered By: Anita Aden on 01-04-2025 Pap Smear Diagnosis Not Reportable W [facility] L506.1001on 01-04-2025 Vitamin D 25-OH 38.4 ng/mL Normal 30-100 [facility] Comment on above: Order Comment: Order Date: 12/23/24 Order Info: 0786-1 - CMP Order Info: [id number] - LIPID Order Info: [id number] - TSH Result Comment: Devora min D Status Deficiency: <20 ng/mL (50nmol/L) Insufficiency: 20-30 ng/mL (50-75 nmol/L) Sufficiency: 30-100 ng/mL (75-250 nmol/L) Toxicity: >100 ng/mL (>250 nmol/L) Performed By: #### L 506.1001 #### [facility] [address] [place], [place], [address] LDL calc ser/plasOrdered By: Anita Aden on 01-04-2025 LDL Cholesterol, Calculated 133 mg/dL [facility] Comment on above: Hzobesepxg=881-752 m g/dL & Higher Gtwx=954 mg/dL or greater Laboratory - Chemistry and C hemistry - challengeOrdered By: Anita Aden on 01-04-2025 AST [Catalytic activity/Vol] 26 U/L <32 [facility] Lipid Profileon 01-04-2025 CHOL:HDL 4.24 Normal [facility] Comment on above: Order Comment: Order Date: 12/23/24 Order Info: 0786-1 - CMP Order Info: [id number] - LIPID Order Info: [id number] - TSH Performed By: #### L 501.9520, L501.9985, L500.4050, L500.4100 #### [facility] [address] [place], [address] Cholesterol [Mass/Vol] 219 mg/dL High <=200 [facility] Comment on above: Order Comment: Order Date: 12/23/24 Order Info: 0786-1 - CMP Order Info: [id number] - LIPID Order Info: 3 - TSH Result Comment: Chol esterol level, Desirable <200 mg/dL Borderline high cholesterol 200-239 mg/dL High cholesterol >=240 mg/dL Recommendations of the NCEP Adult Treatment Panel for the following risk-cutoff thresholds for the [place] population. Performed By: #### L 501.9520, L501.9985, L500.4050, L500.4100 #### [facility] [address] [place], [address] Cholesterol in HDL [Mass/Vol] 52 mg/dL Normal [facility] Comment on above: Order Comment: Order Date: 12/23/24 Order Info: 0786 - CMP Order Info: - LIPID Order Info: [id number] - TSH Result Comment: [place] onal Cholesterol Education Program (NCEP) guidelines: <40 mg/dL: Low HDL-cholesterol (major risk factor for CHD) >= 60 mg/dL: High HDL-cholesterol (negative risk factor for CHD) HDL-cholesterol is affected by a number of factors, e.g. smoking, exercise, hormones, sex and age. Performed By: #### L 501.9520, L501.9985, L500.4050, L500.4100 #### [facility] [address] [place], [address] Cholesterol in LDL [Mass/Vol] 133 mg/dL Normal [facility] Comment on above: Order Comment: Order Date: 12/23/24 Order Info: 0786-1 - CMP Order Info: [id number] - LIPID Order Info: 3 - TSH Result Comment: Bord ncqqyf=731-108 mg/dL Higher Gztq=474 mg/dL or greater Performed By: #### L 501.9520, L501.9985, L500.4050, L500.4100 #### [facility] [address] [place], [place], [address] Cholesterol in VLDL [Mass/Vol] 35 mg/dL Normal 5-40 [facility] Comment on above: Order Comment: Order Date: 12/23/24 Order Info: 0786-1 - CMP Order Info: [id number] - LIPID Order Info: [id number] - TSH Performed By: #### L 501.9520, L501.9985, L500.4050, L500.4100 #### [facility] [address] [place], [place], [address] Triglyceride [Mass/Vol] 174 mg/dL Normal [facility] Comment on above: Order Comment: Order Date: 12/23/24 Order Info: 0786-1 - CMP Order Info: [id number] - LIPID Order Info: [id number] - TSH Result Comment: The drugs N-Acetylcysteine and Metamizole may falsely depress this assay. Normal range: <150 mg/dL Borderline High: 150-199 mg/dL High: 200-499 mg/dL Very High: >500 mg/dL Performed By: #### L 501.9520, L501.9985, L500.4050, L500.4100 #### [facility] [address] [place], [place], [address] No Panel InformationOrdered By: Anita Aden on 01-04-2025 Pap Smear Test Ordered See comment [facility] Comment on above: IGP, Aptima HPVInter pretation:NEGATIVE FOR INTRAEPITHELIAL LESION AND MALIGNANCYCELLULAR CHANGES ASSOCIATED WITH ATROPHY ARE PRESENT.Specimen Adequacy:Satisfactory for evaluation. Endocervical and/or squamousmetaplastic cells (endocervical component) are present.Comments:The pap smear is a screening test designated to aid in thedetection of pre-malignant and malignant conditions of theuterine cervix. It is not a diagnostic procedure and should not be used as the sole means of detecting cervical cancer. Both false-positive and false-negative reports do occur.This liquid based ThinPrep(R) pap test was screened with the use of an image guided system.Performed by Jovanni Painting, Industrial Controller ([facility]) This nucleic acid amplification test detects fourteen high-risk HPV types (16,18,31,33,35,39,45,51,52,56,58,59,66,68) without differentiation.HPV RESULTS: HPV Aptima: Negative [facility]. ORIGINAL REPORT ON FILE IN LAB CONTAINS ADDITIONAL TEST SITE INFORMATION. ____ Potassium (Unsp spec) [Mass/ Vol]Ordered By: Anita Aden on 01-04-2025 Potassium [Moles/Vol] 4.0 mmol/L 3.3-5.1 [facility] SCRN MAMM (CAD)W/ANIVAL BILATo n 01-04-2025 SCRN MAMM (CAD)W/ANIVAL BILAT [facility] Imaging Services [address] [place] [id number] SCRN MAMM (CAD)W/ANIVAL BILAT MR#: [id number] Acct: [id number] Name: KRYSTAL LANGLEY Rep #: [id number] : 1970 F 54 From: Keesha Freeman MD PCP: Dr. Anita Aden MD Status: [facility] Study: SCRN MAMM (CAD)W/ANIVAL BILAT Date of Exam: 12/22 02/15 Exam# [id number] Ordering Dr: Anita Aden MD PROCEDURE: SCRN MAMM (CAD)W/ANIVAL BILAT REASON FOR EXAM: F, Age 54 y/o , SCREENING. No family history of breast cancer. Personal history of ovarian cancer in her late 30s. TECHNIQUE: Bilateral screening digital breast tomosynthesis with 2D and 3D images. Computer aided detection. COMPARISON: 12/15/2021 FINDINGS: There are scattered areas of fibroglandular density. No suspicious masses, areas of developing architectural distortion, or suspicious calcifications. BI/SCRN MAMM (CAD)W/ANIVAL BILAT IMPRESSION: There is no mammographic evidence of malignancy. BI-RADS 1: NEGATIVE. RECOMMEND ANNUAL MAMMOGRAPHIC SCREENING. Follow-up code: Routine Follow-up The patient will be notified of the results by letter. Reading Location: [facility] CC: Dr. Anita Aden MD Clinical Care Manager: Signed Normal [facility] Screening total cholesterol/ high density lipoprotein (HDL) cholesterol ratioOrdered By: Anita Aden on 01-04-2025 Cholesterol.total/Ch olesterol in HDL [Mass ratio] 4.24 {ratio} [facility] Serum creatinine measurement (mass/volume)Ordered By: Anita Aden on 01-04-2025 Creatinine [Mass/Vol] 0.82 mg/dL 0.70-1.20 [facility] Serum globulin measurementOr dered By: Anita Aden on 01-04-2025 Globulin (S) [Mass/Vol] 3.0 g/dL 2.2-4.2 [facility] Serum glucose measurement (m ass/volume)Ordered By: Anita Aden on 01-04-2025 Glucose [Mass/Vol] 90 mg/dL 70-[address] [facility] Serum or plasma alanine [place] otransferase (ALT) measurementOrdered By: Anita Aden on 01-04-2025 ALT [Catalytic activity/Vol] 40 U/L High <35 [facility] Serum or plasma albumin keyana urement (mass/volume)Ordered By: Anita Aden on 01-04-2025 Albumin [Mass/Vol] 4.4 g/dL 3.5-5.[address] [facility] Serum or plasma albumin/glob ulin mass ratioOrdered By: Anita Aden on 01-04-2025 Albumin/Globulin [Mass ratio] 1.5 {ratio} 0.9-2.4 [facility] Serum or plasma alkaline lyle sphatase measurementOrdered By: Anita Aden on 01-04-2025 ALP [Catalytic activity/Vol] 54 U/L 35-104 [facility] Serum or plasma calcium keyana urement (mass/volume)Ordered By: Anita Aden on 01-04-2025 Calcium [Mass/Vol] 9.6 mg/dL 7.6-11.[address] [facility] Serum or plasma cholesterol in HDL measurement (mass/volume)Ordered By: Anita Aden on 01-04-2025 Cholesterol in HDL [Mass/Vol] 52 mg/dL >40 [facility] Comment on above: National Cholesterol Education Program (NCEP) guidelines:<40 mg/dL: Low HDL-cholesterol (major risk factor for CHD)>= 60 mg/dL: High HDL-cholesterol (negative risk factor for CHD)HDL-cholesterol is affected by a number of factors, e.g. smoking, exercise, hormones, sex and age. Serum or plasma cholesterol measurement (mass/volume)Ordered By: Anita Aden on 01-04-2025 Cholesterol [Mass/Vol] 219 mg/dL High <201 [facility] Comment on above: Cholesterol level, D esirable <200 mg/dLBorderline high cholesterol 200-239 mg/dLHigh cholesterol >=240 mg/dLRecommendations of the NCEP Adult Treatment Panel for the following risk-cutoff thresholds for the [place] population. Serum or plasma urea nitroge n measurement (mass/volume)Ordered By: Anita Aden on 01-04-2025 Urea nitrogen [Mass/Vol] 12 mg/dL 4-19 [facility] Sodium levelOrdered By: Shar Aden on 01-04-2025 Sodium [Moles/Vol] 140 mmol/L 133-[address] [facility] TSH DL <= 0.005 mIU/L QnOrde red By: Anita Aden on 01-04-2025 Thyroid Stimulating Hormone (TSH) 1.410 uIU/mL 0.300-4.200 [facility] Thyroid Stim Hormone (TSH)on 01-04-2025 TSH 1.410 uIU/mL Normal 0.300-4.200 [facility] Comment on above: Order Comment: Order Date: 12/23/24 Order Info: [id number] - CMP Order Info: [id number] - LIPID Order Info: [id number] - TSH Performed By: #### L 501.9520, L501.9918, L500.8080, L500.8599 #### [facility] [address] [place], [address] Total proteinOrdered By: Cathy Aden on 01-04-2025 Protein [Mass/Vol] 7.3 g/dL 5.9-8.[address] [facility] Triglycerides measurementOrd ered By: Anita Aden on 01-04-2025 Triglyceride [Mass/Vol] 174 mg/dL <199 [facility] Comment on above: The drugs N-Acetylcy steine and Metamizole may falsely depress this assay. Normal range: <150 mg/dLBorderline High: 150-199 mg/dLHigh: 200-499 mg/dLVery High: >500 mg/dL Vitamin D, 25-hydroxyOrdered By: Anita Aden on 01-04-2025 Vitamin D 25-Hydroxy 38.4 ng/mL 30-100 [facility] Comment on above: Vitamin D StatusDefi ciency: <20 ng/mL (50nmol/L)Insufficiency: 20-30 ng/mL (50-75 nmol/L)Sufficiency: 30-100 ng/mL (75-250 nmol/L)Toxicity: >100 ng/mL (>250 nmol/L) Oncology Visit Reporton 05-25 Oncology Visit Report [facility] [address] [place] [address] OFFICE VISIT Date of Service: 06/20/24 1424 MR#: [id number] Acct: [id number] Name: KRYSTAL LANGLEY Farzana Rep #: [id number] : 1970 From: Venkat Faria MD Age/Sex: 53/F [place] [facility] [place] Status: Signed HPI Subjective Date of Service 06/20/24 Chief Complaint F/u for left ovarian cancer. History of Present Illness 53y.o.woman was diagnosed with Left Ovarian Cancer stage IC. 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 She completed carbo-Taxol x 6 cycles on 04/24/2003. Had a second look exploratory laparotomy on 05/27/2003. Omentectomy, hysterectomy and multiple biopsies including small bowel adhesions, pelvic peritoneum, cul-de-sac peritoneum, sigmoid colon, pelvic and periaortic lymph nodes and abdominopelvic washings, all negative for any persistent cancer. She had DVT Left leg in Aug 2015 and took Xarelto for 6 months. She is now on observation, comes in for follow up. She feels well. [facility]LY [facility] Medical History Deep vein thrombosis (DVT) of left lower extremity Adenocarcinoma Ovarian cancer Surgical History History of cone biopsy of cervix History of tubal ligation History of appendectomy History of hysterectomy for cancer Family History Father Leukemia Social History Smoking Status: Never smoker alcohol intake: never substance use type: does not use caffeine: Yes Type: coffee Number of servings: 5 Intake Vital Signs 06/29/23 15:56 06/20/24 14:25 06/20/24 14:29 Height 5 ft 7 in 5 ft 7 in 5 ft 7 in Weight: 91.257 kg BMI 31.5 BP 109/73 Blood Pressure Location Lt brachial Position Sitting Respiration 18 Pulse 71 Pulse Source Monitor Temp 98.3 F Temperature Source Temporal Artery Pulse Oximetry (%) 97 Oxygen Delivery Method room air Intake Is patient in pain?: No Allergies No Known Allergies Allergy (Verified 06/20/24 14:28) Medications ???Medication ???Instructions ???Recorded ???Confirmed ???Type aspirin 81 mg tablet,delayed 81 mg PO DAILY 01/18/17 06/20/24 History release multivitamin (Multiple Vitamins 1 ea PO DAILY 01/18/17 06/20/24 History tablet) fluticasone propionate 50 2 spray intranasal DAILY PRN 07/02/21 06/20/24 History mcg/actuation nasal allergy symptoms spray,suspension (Flonase Allergy Relief) loratadine 10 mg tablet (Claritin) 10 mg PO DAILY PRN allergy symptoms 07/02/21 06/20/24 History Central Venous Access Central Venous Access: No Laboratory Results 06/13/24 06/23/23 06/23/22 07:08 08:35 15:26 WBC Hgb Hct Plt Count Absolute Neuts (auto) Absolute Lymphs (auto) Creatinine CA 125 Antigen 11.9 13.1 13.0 06/24/21 06/28/20 06/28/20 06:40 09:18 09:18 WBC 4.5 Hgb 14.2 Hct 42.8 Plt Count 282 Absolute Neuts (auto) 2.3 Absolute Lymphs (auto) 1.79 Creatinine 0.86 CA 125 Antigen 15.8 14.5 04/25/18 06:38 WBC Hgb Hct Plt Count Absolute Neuts (auto) Absolute Lymphs (auto) Creatinine CA 125 Antigen 13.1 Exam Physical Exam Const alert, oriented x3, no apparent distress and average body habitus General Appearance: cooperative and comfortable HEENT normocephalic, external ears normal and external nose normal Eyes no scleral icterus Neck supple Lymph Lymphatic: no lymphadenopathy noted Chest inspection of chest normal Resp normal respiratory effort, no use of accessory muscles and clear to auscultation bilaterally Cardio regular rate, regular rhythm, S1 normal heart sound, S2 normal heart sound and no murmurs GI normal to inspection, nondistended, normoactive bowel sounds no CVA tenderness Back/Spine thoracic and lumbar spine normal to inspection Extremity normal to inspection and no clubbing, cyanosis or edema Skin no rashes or lesions noted Neuro oriented x3, CN's II-XII intact bilaterally, moves all extremities and no focal motor deficits Psych mental status grossly normal Coding Level of Care Code Off vis,est,level 3 Exam Problem Focused Diagnoses History of ovarian cancer Z85.43 Assessment and Plan Assessment and Plan (1) History of ovarian cancer: Status: Chronic Comment: History of Left ovarian cancer. CA125 is normal. No evidence of disease clinically. Labs reviewed, within normal limits. P (more content not included)... Normal [facility] Cancer Antigen 125on 024 CA 125 11.9 U/mL Normal 0.0-38.1 [facility] Comment on above: Result Comment: [facility] Electrochemiluminescence Immunoassay (ECLIA) Values obtained with different assay methods or kits cannot be used interchangeably. Results cannot be interpreted as absolute evidence of the presence or absence of malignant disease. Performed at: [address] [id number] Hose Maker: Hilario Francisco PhD, Phone: [phone] Performed By: #### L 500.4050, L3100.5000, L504.2610, L100.0100 #### [facility] [address] [place], [address] CBC W/Diff, Automatedon 05-25 Absolute Lymph 2.26 X10 3/uL Normal 0.83-4.51 [facility] Comment on above: Performed By: #### L 500.4050, L3100.5000, L504.2610, L100.0100 #### [facility] [address] [place], [address] Absolute Neut 2.2 X10 3/uL Normal 2.0-7.7 [facility] Comment on above: Performed By: #### L 500.4050, L3100.5000, L504.2610, L100.0100 #### [facility] [address] [place], [address] Basophils/100 WBC (Bld) 1.0 % Normal 0-1 [facility] Comment on above: Performed By: #### L 500.4050, L3100.5000, L504.2610, L100.0100 #### [facility] [address] [place], [address] Eosinophils/100 WBC (Bld) 3.0 % Normal 0-5 [facility] Comment on above: Performed By: #### L 500.4050, L3100.5000, L504.2610, L100.0100 #### [facility] [address] [place], [address] Erythrocyte distribution width (RBC) [Ratio] 12.0 % Normal 11.6-14.6 [facility] Comment on above: Performed By: #### L 500.4050, L3100.5000, L504.2610, L100.0100 #### [facility] [address] [place], [address] Hematocrit (Bld) [Volume fraction] 41.3 % Normal 37-47 [facility] Comment on above: Performed By: #### L 500.4050, L3100.5000, L504.2610, L100.0100 #### [facility] [address] [place], [address] Hemoglobin (Bld) [Mass/Vol] 13.8 g/dL Normal 12.0-15.0 [facility] Comment on above: Performed By: #### L 500.4050, L3100.5000, L504.2610, L100.0100 #### [facility] [address] [place], [address] IG% 0.200 Normal 0.0-0.9 [facility] Comment on above: Result Comment: IG% - Immature Granulocytes (promyelocytes, myelocytes and metamyelocytes) > 1% indicates that a LEFT SHIFT is Present. Performed By: #### L 500.4050, L3100.5000, L504.2610, L100.0100 #### [facility] [address] [place], [address] Lymphocytes/100 WBC (Bld) 45.4 % High 19-41 [facility] Comment on above: Performed By: #### L 500.4050, L3100.5000, L504.2610, L100.0100 #### [facility] [address] [place], [address] MCH (RBC) [Entitic mass] 30.0 pg Normal 27.0-32.0 [facility] Comment on above: Performed By: #### L 500.4050, L3100.5000, L504.2610, L100.0100 #### [facility] [address] [place], [address] MCHC (RBC) [Mass/Vol] 33.4 g/dL Normal 32-36 [facility] Comment on above: Performed By: #### L 500.4050, L3100.5000, L504.2610, L100.0100 #### [facility] [address] [place], [address] MCV (RBC) [Entitic vol] 89.8 fL Normal 81-99 [facility] Comment on above: Performed By: #### L 500.4050, L3100.5000, L504.2610, L100.0100 #### [facility] [address] [place], [address] Monocytes/100 WBC (Bld) 6.8 % Normal 0-10 [facility] Comment on above: Performed By: #### L 500.4050, L3100.5000, L504.2610, L100.0100 #### [facility] [address] [place], [address] Neutrophils/100 WBC (Bld) 43.6 % Low 47-70 [facility] Comment on above: Performed By: #### L 500.4050, L3100.5000, L504.2610, L100.0100 #### [facility] [address] [place], [address] Nucleated RBC (Bld) [#/Vol] 0 10*3/uL Normal 0-5 [facility] Comment on above: Performed By: #### L 500.4050, L3100.5000, L504.2610, L100.0100 #### [facility] [address] [place], [address] Platelet mean volume (Bld) [Entitic vol] 10.6 fL Normal 6.2-12.0 [facility] Comment on above: Performed By: #### L 500.4050, L3100.5000, L504.2610, L100.0100 #### [facility] [address] [place], [address] Platelets (Bld) [#/Vol] 266 10*3/uL Normal 150-450 [facility] Comment on above: Performed By: #### L 500.4050, L3100.5000, L504.2610, L100.0100 #### [facility] [address] [place], [address] RBC (Bld) [#/Vol] 4.60 10*6/uL Normal 4.2-5.4 [facility] Comment on above: Performed By: #### L 500.4050, L3100.5000, L504.2610, L100.0100 #### [facility] [address] [place], [address] RDW SD 39.7 fl Normal 35.1-43.9 [facility] Comment on above: Performed By: #### L 500.4050, L3100.5000, L504.2610, L100.0100 #### [facility] [address] [place], [address] WBC (Bld) [#/Vol] 5.0 10*3/uL Normal 4.4-11.[address] [facility] Comment on above: Performed By: #### L 500.4050, L3100.5000, L504.2610, L100.0100 #### [facility] [address] [place], [address] Comprehensive Metabolic Prof [facility] 06-13-2024 Albumin [Mass/Vol] 3.8 g/dL Normal 3.2-5.[address] [facility] Comment on above: Order Comment: 1 Performed By: #### L 500.4050, L3100.5000, L504.2610, L100.0100 #### [facility] [address] [place], [address] Albumin/Globulin [Mass ratio] 1.0 {ratio} Normal 0.9-2.4 [facility] Comment on above: Order Comment: 1 Performed By: #### L 500.4050, L3100.5000, L504.2610, L100.0100 #### [facility] [address] [place], [address] ALK P 63 U/L Normal 45-117 [facility] Comment on above: Order Comment: 1 Performed By: #### L 500.4050, L3100.5000, L504.2610, L100.0100 #### [facility] [address] [place], [address] ALT [Catalytic activity/Vol] 26 U/L Normal 13-56 [facility] Comment on above: Order Comment: 1 Performed By: #### L 500.4050, L3100.5000, L504.2610, L100.0100 #### [facility] [address] [place], [address] AST [Catalytic activity/Vol] 16 U/L Normal 15-37 [facility] Comment on above: Order Comment: 1 Performed By: #### L 500.4050, L3100.5000, L504.2610, L100.0100 #### [facility] [address] [place], [address] Bilirubin [Mass/Vol] 0.40 mg/dL Normal 0.20-1.00 [facility] Comment on above: Order Comment: 1 Result Comment: For patients on eltrombopag therapy, use of Dimension [place] TBIL is not recommended. Performed By: #### L 500.4050, L3100.5000, L504.2610, L100.0100 #### [facility] [address] [place], [address] BUN/CRE 19.8 RATIO Normal 10-20 [facility] Comment on above: Order Comment: 1 Performed By: #### L 500.4050, L3100.5000, L504.2610, L100.0100 #### [facility] [address] [place], [address] CA,Total 9.2 mg/dL Normal 8.5-10.1 [facility] Comment on above: Order Comment: 1 Performed By: #### L 500.4050, L3100.5000, L504.2610, L100.0100 #### [facility] [address] [place], [address] Chloride [Moles/Vol] 108 mmol/L High 98-107 [facility] Comment on above: Order Comment: 1 Performed By: #### L 500.4050, L3100.5000, L504.2610, L100.0100 #### [facility] [address] [place], [address] CO2 [Moles/Vol] 27.0 mmol/L Normal 21.0-32.0 [facility] Comment on above: Order Comment: 1 Performed By: #### L 500.4050, L3100.5000, L504.2610, L100.0100 #### [facility] [address] [place], [address] Creatinine [Mass/Vol] 0.86 mg/dL Normal 0.55-1.02 [facility] Comment on above: Order Comment: 1 Result Comment: The validity of the calculated GFR GFRAA in patients over 70 years has not been determined. Clinical correlation is essential. Performed By: #### L 500.4050, L3100.5000, L504.2610, L100.0100 #### [facility] [address] [place], [address] EST GFR - AA 88 mL/min Normal >60 [facility] Comment on above: Order Comment: 1 Result Comment: Afri can Italian GFR Calc Performed By: #### L 500.4050, L3100.5000, L504.2610, L100.0100 #### [facility] [address] [place], [address] GAP 6 Normal 5-15 [facility] Comment on above: Order Comment: 1 Performed By: #### L 500.4050, L3100.5000, L504.2610, L100.0100 #### [facility] [address] [place], [address] GFR/1.73 sq M.predicted among non-blacks MDRD (S/P/Bld) [Vol rate/Area] 73 mL/min/{1.73_m2} Normal >60 [facility] Comment on above: Order Comment: 1 Result Comment: Non- GFR Calc Performed By: #### L 500.4050, L3100.5000, L504.2610, L100.0100 #### [facility] [address] [place], [address] Globulin (S) [Mass/Vol] 3.8 g/dL Normal 2.2-4.2 [facility] Comment on above: Order Comment: 1 Performed By: #### L 500.4050, L3100.5000, L504.2610, L100.0100 #### [facility] [address] [place], [address] Glucose [Mass/Vol] 102 mg/dL Normal 74-[address] [facility] Comment on above: Order Comment: 1 Result Comment: Fast ing Glucose result from 100 to 125 mg/dL suggests IMPAIRED HOMEOSTASIS per A.D.A. criteria. Performed By: #### L 500.4050, L3100.5000, L504.2610, L100.0100 #### [facility] [address] [place], [address] Potassium [Moles/Vol] 4.0 mmol/L Normal 3.5-5.1 [facility] Comment on above: Order Comment: 1 Performed By: #### L 500.4050, L3100.5000, L504.2610, L100.0100 #### [facility] [address] [place], [address] Sodium [Moles/Vol] 141 mmol/L Normal 136-[address] [facility] Comment on above: Order Comment: 1 Performed By: #### L 500.4050, L3100.5000, L504.2610, L100.0100 #### [facility] [address] [place], [address] T PROT 7.6 g/dL Normal 6.4-8.2 [facility] Comment on above: Order Comment: 1 Performed By: #### L 500.4050, L3100.5000, L504.2610, L100.0100 #### [facility] [address] [place], [address] Urea nitrogen [Mass/Vol] 17 mg/dL Normal 7-18 [facility] Comment on above: Order Comment: 1 Performed By: #### L 500.4050, L3100.5000, L504.2610, L100.0100 #### [facility] [address] [place], [address] LDHon 06-13-2024 LDH 196 U/L Normal 84-246 [facility] Comment on above: Order Comment: 1 Performed By: #### L 500.4050, L3100.5000, L504.2610, L100.0100 #### [facility] [address] [place], [address] Absolute lymphocyte countOrd ered By: Venkat Faria on 06-23-2023 Lymphocytes Auto (Unsp spec) [#/Vol] 1.98 10*3/uL 0.83-4.51 [facility] Basophil percentageOrdered B y: Venkat Faria on 06-23-2023 Basophils/100 WBC (Bld) 0.6 % 0-1 [facility] Bilirubin [Mass/Vol] 0.50 mg/dL 0.20-1.00 [facility] Comment on above: For patients on eltr ombopag therapy, use of Dimension [place] TBIL is not recommended. Chloride [Moles/Vol] 107 mmol/L 98-107 [facility] Eosinophils/100 WBC (Bld) 1.3 % 0-5 [facility] Glucose [Mass/Vol] 88 mg/dL 74-[address] [facility] LDH [Catalytic activity/Vol] 145 U/L 84-246 [facility] Neutrophils (Bld) [#/Vol] 2.2 10*3/uL 2.0-7.7 [facility] Neutrophils/100 WBC (Bld) 47.6 % 47-70 [facility] Potassium [Moles/Vol] 4.2 mmol/L 3.5-5.1 [facility] Protein [Mass/Vol] 7.5 g/dL 6.4-8.[address] [facility] Sodium [Moles/Vol] 140 mmol/L 136-[address] [facility] WBC (Bld) [#/Vol] 4.6 10*3/uL 4.4-11.[address] [facility] Blood erythrocytes count (nu mber/volume)Ordered By: Venkat Faria on 06-23-2023 RBC (Bld) [#/Vol] 4.52 10*6/uL 4.2-5.4 [facility] Blood hemoglobin measurement (mass/volume)Ordered By: Venkat Faria on 06-23-2023 Hemoglobin (Bld) [Mass/Vol] 14.1 g/dL 12.0-15.0 [facility] Blood lymphocytes/100 leukoc ytesOrdered By: Venkat Faria on 06-23-2023 Lymphocytes/100 WBC (Bld) 42.9 % 19-41 [facility] Blood monocytes/100 leukocyt esOrdered By: Venkat Faria on 06-23-2023 Monocytes/100 WBC (Bld) 7.4 % 0-10 [facility] Blood platelet mean volumeOr dered By: Venkat Faria on 06-23-2023 Platelet mean volume (Bld) [Entitic vol] 10.5 fL 6.2-12.0 [facility] Determination of erythrocyte mean corpuscular volume (MCV)Ordered By: Venkat Faria on 06-23-2023 MCV (RBC) [Entitic vol] 91.2 fL 81-99 [facility] Hematocrit Auto (Bld) [Volum e fraction]Ordered By: [facility] on 06-23-2023 Hematocrit (Bld) [Volume fraction] 41.2 % 37-47 [facility] - Chemistry and C hemistry - challengeOrdered By: [facility] on 06-23-2023 ALP [Catalytic activity/Vol] 56 U/L 45-117 [facility] ALT [Catalytic activity/Vol] 30 U/L 13-56 [facility] CO2 [Moles/Vol] 28.0 mmol/L 21.0-32.0 [facility] Globulin (S) [Mass/Vol] 3.7 g/dL 2.2-4.2 [facility] Urea nitrogen/Creatinine [Mass ratio] 14.1 mg/mg 10-20 [facility] - Hematology and Cell countsOrdered By: [place] Alissa on 06-23-2023 Erythrocyte distribution width (RBC) [Entitic vol] 40.4 fL 35.1-43.9 [facility] Erythrocyte distribution width (RBC) [Ratio] 12.0 % 11.6-14.6 [facility] Immature granulocytes/100 WBC (Bld) 0.200 % 0.0-0.9 [facility] Comment on above: IG% - Immature Granu locytes (promyelocytes, myelocytes and metamyelocytes) > 1% indicates that a LEFT SHIFT is Present. MCH (RBC) [Entitic mass] 31.2 pg 27.0-32.0 [facility] Nucleated RBC/100 WBC (Bld) [Ratio] 0 % 0-5 [facility] MCHC Auto (RBC) [Mass/Vol]Or dered By: Venkat Faria on 06-23-2023 MCHC (RBC) [Mass/Vol] 34.2 g/dL 32-36 [facility] No Panel InformationOrdered By: [facility] on 06-23-2023 CA 125 Antigen 13.1 U/mL 0.0-38.1 [facility] Comment on above: [facility] El ectrochemiluminescence Immunoassay(ECLIA)Values obtained with different assay methods or kits cannotbe used interchangeably. Results cannot be interpreted asabsolute evidence of the presence or absence of malignantdisease.Performed at: [facility] [id number] Director: Hilario Francisco PhD, Phone: [phone] Estimated GFR (MDRD) Amer 89 mL/min >60 [facility] Comment on above: GFR Calc Estimated GFR (MDRD) Non-Af Amer 74 mL/min >60 [facility] Comment on above: Non- GFR Calc Platelets bldOrdered By: Jeremiah Faria on 06-23-2023 Platelets (Bld) [#/Vol] 287 10*3/uL 150-450 [facility] Serum or plasma albumin keyana urement (mass/volume)Ordered By: Venkat Faria on 06-23-2023 Albumin [Mass/Vol] 3.8 g/dL 3.2-5.[address] [facility] Serum or plasma albumin/glob ulin mass ratioOrdered By: Venkat Faria on 06-23-2023 Albumin/Globulin [Mass ratio] 1.0 {ratio} 0.9-2.4 [facility] Serum or plasma calcium keyana urement (mass/volume)Ordered By: Venkat Faria on 06-23-2023 Calcium [Mass/Vol] 9.2 mg/dL 8.5-10.[address] [facility] Serum or plasma creatinine m easurement (mass/volume)Ordered By: Venkat Faria on 06-23-2023 Creatinine [Mass/Vol] 0.85 mg/dL 0.55-1.02 [facility] Comment on above: The validity of the calculated GFR & GFRAA in patients over 70 years has not been determined. Clinical correlation is essential. Serum or plasma urea nitroge n measurement (mass/volume)Ordered By: Venkat Faria on 06-23-2023 Urea nitrogen [Mass/Vol] 12 mg/dL 7-18 [facility] Thin prep Papanicolaou smear with manual screeningOrdered By: Venkat Faria on 06-23-2023 Thin prep Papanicolaou smear with manual screening 14 U/L 15-37 [facility] Thin prep Papanicolaou smear with manual screening 5 5-15 [facility] Absolute lymphocyte counton 06-23-2022 Lymphocytes Auto (Unsp spec) [#/Vol] 2.57 10*3/uL 0.83-4.51 [facility] Work Phone: Basophil percentageon 2021 Basophils/100 WBC (Bld) 0.7 % 0-1 [facility] Work Phone: Bilirubin [Mass/Vol] 0.40 mg/dL 0.20-1.00 [facility] [facility] Work Phone: Comment on above: For patients on eltr ombopag therapy, use of Dimension [place] TBIL is not recommended. Chloride [Moles/Vol] 107 mmol/L 98-107 [facility] Work Phone: Eosinophils/100 WBC (Bld) 1.0 % 0-5 [facility] Work Phone: Glucose [Mass/Vol] 97 mg/dL 74-[address] [facility] Work Phone: Neutrophils (Bld) [#/Vol] 2.7 10*3/uL 2.0-7.7 [facility] Work Phone: Neutrophils/100 WBC (Bld) 46.1 % 47-70 [facility] Work Phone: Potassium [Moles/Vol] 4.0 mmol/L 3.5-5.1 [facility] Work Phone: Protein [Mass/Vol] 7.8 g/dL 6.4-8.[address] [facility] Work Phone: Sodium [Moles/Vol] 141 mmol/L 136-[address] [facility] Work Phone: WBC (Bld) [#/Vol] 5.8 10*3/uL 4.4-11.[address] [facility] Work Phone: Blood erythrocytes count (nu mber/volume)on 06-23-2022 RBC (Bld) [#/Vol] 4.76 10*6/uL 4.2-5.4 [facility] Work Phone: [phone] Blood hemoglobin measurement (mass/volume)on 06-23-2022 Hemoglobin (Bld) [Mass/Vol] 14.6 g/dL 12.0-15.0 [facility] Work Phone: [phone] Blood lymphocytes/100 leukoc yteson 06-23-2022 Lymphocytes/100 WBC (Bld) 44.0 % 19-41 [facility] Work Phone: [phone] Blood monocytes/100 leukocyt eson 06-23-2022 Monocytes/100 WBC (Bld) 8.0 % 0-10 [facility] Work Phone: [phone] Blood platelet mean volumeon 06-23-2022 Platelet mean volume (Bld) [Entitic vol] 10.5 fL 6.2-12.0 [facility] Work Phone: [phone] Determination of erythrocyte mean corpuscular volume (MCV)on 06-23-2022 MCV (RBC) [Entitic vol] 89.9 fL 81-99 [facility] Work Phone: [phone] Hematocrit Auto (Bld) [Volum e fraction]on 06-23-2022 Hematocrit (Bld) [Volume fraction] 42.8 % 37-47 [facility] Work Phone: [phone] Laboratory - Chemistry and C hemistry - challengeon 06-23-2022 ALP [Catalytic activity/Vol] 55 U/L 45-117 [facility] Work Phone: [phone] ALT [Catalytic activity/Vol] 33 U/L 13-56 [facility] Work Phone: [phone] CO2 [Moles/Vol] 29.0 mmol/L 21.0-32.0 [facility] Work Phone: [phone] Globulin (S) [Mass/Vol] 3.8 g/dL 2.2-4.2 [facility] Work Phone: [phone] Urea nitrogen/Creatinine [Mass ratio] 20.4 mg/mg 10-20 [facility] Work Phone: [phone] Laboratory - Hematology and Cell countson 06-23-2022 Erythrocyte distribution width (RBC) [Entitic vol] 38.2 fL 35.1-43.9 [facility] Work Phone: [phone] Erythrocyte distribution width (RBC) [Ratio] 11.7 % 11.6-14.6 [facility] Work Phone: [phone] Immature granulocytes/100 WBC (Bld) 0.200 % 0.0-0.9 [facility] Work Phone: [phone] Comment on above: IG% - Immature Granu locytes (promyelocytes, myelocytes and metamyelocytes) > 1% indicates that a LEFT SHIFT is Present. MCH (RBC) [Entitic mass] 30.7 pg 27.0-32.0 [facility] Work Phone: [phone] Nucleated RBC/100 WBC (Bld) [Ratio] 0 % 0-5 [facility] Work Phone: [phone] MCHC Auto (RBC) [Mass/Vol]on 06-23-2022 MCHC (RBC) [Mass/Vol] 34.1 g/dL 32-36 [facility] Work Phone: [phone] No Panel Informationon 06-23 CA 125 Antigen 13.0 U/mL 0.0-38.1 [facility] Work Phone: [phone] Comment on above: [facility] El ectrochemiluminescence Immunoassay(ECLIA)Values obtained with different assay methods or kits cannotbe used interchangeably. Results cannot be interpreted asabsolute evidence of the presence or absence of malignantdisease.Performed at: [address] [id number] Director: Hilario Francisco PhD, Phone: [phone] Estimated GFR (MDRD) Amer 86 mL/min >60 [facility] Work Phone: [phone] Comment on above: GFR Calc Estimated GFR (MDRD) Non-Af Amer 71 mL/min >60 [facility] Work Phone: [phone] Comment on above: Non- GFR Calc Platelets bldon 06-23-2022 Platelets (Bld) [#/Vol] 295 10*3/uL 150-450 [facility] Work Phone: Serum or plasma albumin keyana urement (mass/volume)on 06-23-2022 Albumin [Mass/Vol] 4.0 g/dL 3.2-5.[address] [facility] Work Phone: Serum or plasma albumin/glob ulin mass ratioon 06-23-2022 Albumin/Globulin [Mass ratio] 1.1 {ratio} 0.9-2.4 [facility] Work Phone: Serum or plasma calcium keyana urement (mass/volume)on 06-23-2022 Calcium [Mass/Vol] 9.5 mg/dL 8.5-10.[address] [facility] Work Phone: Serum or plasma creatinine m easurement (mass/volume)on 06-23-2022 Creatinine [Mass/Vol] 0.88 mg/dL 0.55-1.02 [facility] Work Phone: Comment on above: The validity of the calculated GFR & GFRAA in patients over 70 years has not been determined. Clinical correlation is essential. Serum or plasma urea nitroge n measurement (mass/volume)on 06-23-2022 Urea nitrogen [Mass/Vol] 18 mg/dL 7-18 [facility] Work Phone: Thin prep Papanicolaou smear with manual screeningon 06-23-2022 Thin prep Papanicolaou smear with manual screening 15 U/L 15-37 [facility] Work Phone: Thin prep Papanicolaou smear with manual screening 5 5-15 [facility] Work Phone: Thin prep Papanicolaou smear with manual screening 164 U/L 84-246 [facility] Work Phone: XR FOOT MINIMUM 3 VIEWS RIGH Ton 12-22-2017 XR FOOT MINIMUM 3 VIEWS RIGHT ORIGINALXR FOOT MINIMUM 3 VIEWS RIGHT, Clinical Statement: right foot pain Comparison: None Findings: No acute fracture, lytic process or periosteal reaction is seen in the visualized bones. No significant degenerative or erosive changes or soft tissue calcification. There is a small plantar calcaneal spur. IMPRESSION:No significant skeletal abnormality. Interpreted By: Tony ,Giovani MDPreliminary Report By: Giovani Jimenez MDElectronically Signed By: Giovani Jimenez MD Dictated Date: 12/22/2017 5:20:45 PM Prelim Date: 12/22/2017 5:20:45 PM Sign Date: 12/22/2017 5:21:09 PM Normal [facility] ([place]) Lab Report: CBC W/Diff, Auto matedon 04-29-2017 Lymphocytes/100 leukocytes 58.4 % High 19-41 [facility] Work Phone: [phone] neutrophil count, blood 1.4 X10 3/UL Low 2.0-7.7 [facility] Work Phone: [phone] Neutrophils/100 leukocytes 34.7 % Low 47-70 [facility] Work Phone: [phone] WBC (Leukocytes) 4.0 10*3/uL Low 4.4-11.0 [facility] Work Phone: [phone] Basophils/100 leukocytes 0.2 % Invalid Interpretation Code 0-1 [facility] Work Phone: [phone] Eosinophils/100 leukocytes 1.5 % Invalid Interpretation Code 0-5 [facility] Work Phone: [phone] Erythrocytes (RBC) 4.61 10*6/uL Invalid Interpretation Code 4.2-5.4 [facility] Work Phone: [phone] Hematocrit (HCT) 41.8 % Invalid Interpretation Code 37-47 [facility] Work Phone: [phone] Hemoglobin (HGB) 13.9 g/dL Invalid Interpretation Code 12.0-15.0 [facility] Work Phone: [phone] immature granulocytes, percentage of total cells, blood 0.000 % Invalid Interpretation Code 0.0-0.9 [facility] Work Phone: [phone] Lymphocytes 2.34 X10 3/UL Invalid Interpretation Code 0.83-4.51 [facility] Work Phone: [phone] MCH 30.2 pg Invalid Interpretation Code 27.0-32.0 [facility] Work Phone: [phone] MCHC 33.3 G/GL Invalid Interpretation Code 32-36 [facility] Work Phone: [phone] MCV 90.7 fL Invalid Interpretation Code 81-99 [facility] Work Phone: [phone] Monocytes/100 leukocytes 5.2 % Invalid Interpretation Code 0-10 [facility] Work Phone: [phone] Platelets 238 10*3/mm3 Invalid Interpretation Code 150-450 [facility] Work Phone: [phone] PMV by Janie 10.8 fL Invalid Interpretation Code 6.2-12.0 [facility] Work Phone: [phone] RDW-CA 12.5 % Invalid Interpretation Code 11.6-14.6 [facility] Work Phone: [phone] red blood cell distribution width, size density 41.3 fL Invalid Interpretation Code 35.1-43.9 [facility] Work Phone: [phone] Lab Report: [facility] 04-29-2017 Alanine aminotransferase (ALT) 21 U/L Invalid Interpretation Code 12-78 [facility] Work Phone: [phone] Albumin 3.9 g/dL Invalid Interpretation Code 3.4-5.0 [facility] Work Phone: [phone] Albumin/Globulin Ratio 1.1 {ratio} Invalid Interpretation Code 0.9-2.4 [facility] Work Phone: [phone] Alkaline phosphatase (ALP) 74 U/L Invalid Interpretation Code 45-117 [facility] Work Phone: [phone] Anion gap 6 mmol/L Invalid Interpretation Code 5-15 [facility] Work Phone: [phone] Aspartate aminotransferase (AST) 14 U/L Low 15-37 [facility] Work Phone: [phone] Bilirubin (total) 0.60 mg/dL Invalid Interpretation Code 0.20-1.00 [facility] Work Phone: [phone] BUN/Creatinine Ratio 13.8 RATIO Invalid Interpretation Code 10-20 [facility] Work Phone: [phone] Calcium 9.4 mg/dL Invalid Interpretation Code 8.5-10.1 [facility] Work Phone: [phone] Chloride 108 mmol/L High 98-107 [facility] Work Phone: [phone] CO2 29.0 mmol/L Invalid Interpretation Code 21.0-32.0 [facility] Work Phone: [phone] Creatinine 0.87 mg/dL Invalid Interpretation Code 0.55-1.02 [facility] Work Phone: [phone] eGFR (non-black) 90 mL/min/{1.73_m2} Invalid Interpretation Code >60 [facility] Work Phone: [phone] eGFR (non-black) 74 mL/min/{1.73_m2} Invalid Interpretation Code >60 [facility] Work Phone: [phone] Globulin 3.5 g/dL Invalid Interpretation Code 2.3-3.5 [facility] Work Phone: [phone] Glucose 88 mg/dL Invalid Interpretation Code 70-110 [facility] Work Phone: [phone] Potassium 4.2 mmol/L Invalid Interpretation Code 3.5-5.1 [facility] Work Phone: [phone] Protein 7.4 g/dL Invalid Interpretation Code 6.4-8.2 [facility] Work Phone: [phone] Sodium 143 mmol/L Invalid Interpretation Code 136-145 [facility] Work Phone: [phone] Urea nitrogen 12 mg/dL Invalid Interpretation Code 7-18 [facility] Work Phone: [phone] Lab Report: [facility] 04-29-2017 lactate dehydrogenase - serum 177 U/L Invalid Interpretation Code 84-246 [facility] Work Phone: [phone] Lab Report: Uric Acidon Urate 3.8 mg/dL Invalid Interpretation Code 2.6-6.0 [facility] Work Phone: [phone] Lab Report: Miscellaneous La b Procedureon 04-29-2016 GE use only - for [employer] import when terms are not otherwise specified . Invalid Interpretation Code [facility] Work Phone: [phone] Office Visiton 04-29-2016 Documentation of current medications (procedure) Done Invalid Interpretation Code [facility] Work Phone: Lab Report: AT III Func / Im munolon 04-23-2016 Antithrombin III Antigen . Invalid Interpretation Code [facility] Work Phone: [phone] antithrombin, functional . Invalid Interpretation Code [facility] Work Phone: [phone] Lab Report: Factor II, DNA A nalysison 04-23-2016 prothrombin 94728 mutation, DNA testing by PCR, whole blood . Invalid Interpretation Code [facility] Work Phone: [phone] Lab Report: Protein C Defic. Profileon 04-23-2016 protein C antigen, plasma . Invalid Interpretation Code [facility] Work Phone: [phone] Lab Report: Protein S Defic. Profileon 04-23-2016 Protein S, Functional . Invalid Interpretation Code [facility] Work Phone: Office Visiton 02-05-2016 Tobacco smoking status NHIS Never Invalid Interpretation Code [facility] Work Phone: Tobacco use CPHS Never smoker Invalid Interpretation Code [facility] Work Phone: [phone] Lab Report: Cancer Antigen 1 25on 01-30-2016 cancer 125 antigen 12.0 U/mL Invalid Interpretation Code 0.0-34.0 [facility] Work Phone: Lab Report: Carbohydrate AG 19-9on 08-06-2015 cancer 19-9 antigen, serum, semiquantitative 28 U/mL Invalid Interpretation Code 0-35 [facility] Work Phone: Lab Report: CBC W/Diff, Auto matedon 08-04-2015 Absolute Neutrophil count 2.8 X10 3/UL Invalid Interpretation Code 2.0-7.7 [facility] Work Phone: Vital Signs Date Time Vital Sign Value Performing Clinician Facility 06-29-2023 15:56-0400 Body height 170.18 cm No Primary Care Physician [facility] 06-29-2023 15:56-0400 Body mass index (BMI) [Ratio] 31 kg/m2 No Primary Care Physician [facility] 06-29-2023 15:56-0400 Body temperature 97.7 [degF] No Primary Care Physician [facility] 06-29-2023 15:56-0400 Body weight 89.89 kg No Primary Care Physician [facility] 06-29-2023 15:56-0400 Diastolic blood pressure 76 mm[Hg] No Primary Care Physician [facility] 06-29-2023 15:56-0400 Heart rate 63 /min No Primary Care Physician [facility] 06-29-2023 15:56-0400 Respiratory rate 18 /min No Primary Care Physician [facility] 06-29-2023 15:56-0400 SaO2% (BldA) [Mass fraction] 99 % No Primary Care Physician [facility] 06-29-2023 15:56-0400 Systolic blood pressure 114 mm[Hg] No Primary Care Physician [facility] 04-29-2016 14:15-0400 BMI (Body Mass Index) 29.54 kg/m2 [facility] Work Phone: 04-29-2016 14:15-0400 Body Temperature 97.4 [degF] [facility] Work Phone: 04-29-2016 14:15-0400 BP Diastolic 78 mm[Hg] [facility] Work Phone: 04-29-2016 14:15-0400 BP Systolic 115 mm[Hg] [facility] Work Phone: 04-29-2016 14:15-0400 BSA (Body Surface Area) 1.95 m2 [facility] Work Phone: 04-29-2016 14:15-0400 Height 168.91 cm [facility] Work Phone: 04-29-2016 14:15-0400 Pulse (Heart Rate) 62 /min [facility] Work Phone: 04-29-2016 14:15-0400 Respiratory Rate 16 /min [facility] Work Phone: 04-29-2016 14:15-0400 Weight 84.28 kg [facility] Work Phone: 02-05-2016 14:34-0400 Body Temperature 97.39 [degF] Venkat Faria MD [facility] Work Phone: 08-20-2015 15:59-0400 Height 168.91 cm Venkat Faria MD [facility] Work Phone: Encounters Encounter Date Encounter Type Care Provider Facility Start: 01-04-2025 End: 01-04-2025 ambulatory Anita Aden MD Work Phone: [facility] Work Phone: Start: 01-04-2025 End: 01-04-[address] Anita Aden MD -Outpatient [facility] Work Phone: Start: 01-04-2025 End: 01-04-2025 ambulatory Anita Aden Facility:[facility] Start: 06-20-2024 End: 06-20-2024 ambulatory No Primary Care Physician Facility[place] Start: 06-13-2024 End: 06-13-2024 ambulatory No Primary Care Physician Facility:[facility] Start: 06-29-2023 End: 06-29-2023 Patient encounter procedure No Primary Care Physician [facility] Work Phone: Start: 06-23-2023 End: 06-23-2023 ambulatory No Primary Care Physician [facility] Work Phone: Start: 06-23-2023 End: 06-23-2023 Patient encounter procedure No Primary Care Physician [facility] Work Phone: Start: 06-23-2022 End: 06-23-2022 ambulatory [facility] Work Phone: Start: 06-23-2022 End: 06-23-2022 Patient encounter procedure [facility] Start: 09-03-2020 End: 09-03-2020 Subsequent hospital visit by physician Ramesh Sanchez Work Phone: [facility] Comment on above: Hx of ovarian cancer ; History of colon polyps Start: 12-22-2017 End: 12-23-2017 Ambulatory APIGE BACA Facility:[facility] Procedures Date Procedure Procedure Detail Performing Clinician Start: 01-04-2025 Screening mammography C carmen Aden MD Work Phone: Start: 01-29-2016 End: 01-29-2016 *CBC with Differential Gomez M Alam Work Phone: Start: 01-29-2016 End: 01-29-2016 *CMP Complete Metabolic Panel Gomez M Alam Work Phone: Start: 01-29-2016 End: 02-02-2016 Cancer antigen 125 Gomez M Alam Work Phone: Start: 01-29-2016 End: 01-29-2016 Lactate dehydrogenase (LDH) Gomez M A montgomery Work Phone: Start: 01-29-2016 End: 01-29-2016 Urate Gomez M Alam Work Phone: Start: 09-25-2015 End: 09-25-2015 *CBC with Differential Gomez M Alam Work Phone: Start: 09-25-2015 End: 09-25-2015 *CMP Complete Metabolic Panel Gomez M Alam Work Phone: Start: 09-25-2015 End: 09-25-2015 Lactate dehydrogenase (LDH) Gomez M A montgomery Work Phone: Start: 09-25-2015 End: 09-25-2015 Urate Gomez M Alam Work Phone: Start: 08-04-2015 End: 08-05-2015 *CBC with Differential Gomez M Alam Work Phone: Start: 08-04-2015 End: 08-06-2015 Cancer antigen 125 Gomez M Alam Work Phone: Start: 08-04-2015 End: 08-06-2015 Cancer antigen 19-9 Gomez M Alam Work Phone: Plan of Treatment Date Care Activity Detail Author Start: 05-04-2017 End: 05-04-2017 Appointment Appointment [facility] Work Phone: Start: 05-02-2017 End: 04-29-2016 *CBC with Differential *CBC with Differential [facility] Work Phone: Start: 05-02-2017 End: 04-29-2016 *CMP Complete Metabolic Panel *CMP Complete Metabolic Panel [facility] Work Phone: Start: 05-02-2017 End: 04-29-2016 Lactate dehydrogenase (LDH) *LDH -LDH (Lactate Dehydrogenase) [facility] Work Phone: Start: 05-02-2017 End: 04-29-2016 Urate *Uric Acid Blood [facility] Work Phone: Start: 01-29-2016 End: 01-29-2016 *CBC with Differential *CBC with Differential [facility] Work Phone: Start: 01-29-2016 End: 01-29-2016 *CMP Complete Metabolic Panel *CMP Complete Metabolic Panel [facility] Work Phone: Start: 01-29-2016 End: 02-02-2016 Cancer antigen 125 *CA125 - Cancer Antigen (CA) 125 [facility] Work Phone: Start: 01-29-2016 End: 01-29-2016 Lactate dehydrogenase (LDH) *LDH -LDH (Lactate Dehydrogenase) [facility] Work Phone: Start: 01-29-2016 End: 01-29-2016 Urate *Uric Acid Blood [facility] Work Phone: Start: 12-08-2015 End: 11-04-2015 *CBC with Differential *CBC with Differential [facility] Work Phone: Start: 12-08-2015 End: 11-04-2015 *CMP Complete Metabolic Panel *CMP Complete Metabolic Panel [facility] Work Phone: Start: 12-08-2015 End: 11-04-2015 Lactate dehydrogenase (LDH) *LDH -LDH (Lactate Dehydrogenase) [facility] Work Phone: Start: 12-08-2015 End: 11-04-2015 Urate *Uric Acid Blood [facility] Work Phone: Start: 09-25-2015 End: 09-25-2015 *CBC with Differential *CBC with Differential [facility] Work Phone: Start: 09-25-2015 End: 09-25-2015 *CMP Complete Metabolic Panel *CMP Complete Metabolic Panel [facility] Work Phone: Start: 09-25-2015 End: 09-25-2015 Lactate dehydrogenase (LDH) *LDH -LDH (Lactate Dehydrogenase) [facility] Work Phone: Start: 09-25-2015 End: 09-25-2015 Urate *Uric Acid Blood [facility] Work Phone: Start: 08-04-2015 End: 08-05-2015 *CBC with Differential *CBC with Differential [facility] Work Phone: Start: 08-04-2015 End: 08-06-2015 Cancer antigen 125 *CA125 - Cancer Antigen (CA) 125 [facility] Work Phone: Start: 08-04-2015 End: 08-06-2015 Cancer antigen 19-9 *CA19 - Cancer Ag (CA) 19-9 [facility] Work Phone: Start: 1989 Microscopic observat ion Cyto stain Nom (Cvx) Pap Smear [facility] Start: 12-26-1987 Hepatitis B (1 of 3 - Risk 3-dose series) Hepatitis B (1 of 3 - Risk 3-dose series) [facility] Start: 1984 MenB (1 of 2 - MenB 2-Dose Series) MenB (1 of 2 - MenB 2-Dose Series) [facility] Start: 12-26-1975 Tetanus Diphtheria a nd Pertussis Vaccines (1 - Tdap) Tetanus Diphtheria and Pertussis Vaccines (1 - Tdap) [facility] Start: 1969 Hepatitis A (1 of 2 - Risk 2-dose series) Hepatitis A (1 of 2 - Risk 2-dose series) [facility] Start: 1969 MMR (1 of 1 - Standa rd series) MMR (1 of 1 - Standard series) [facility] Start: 1969 Varicella (1 of 2 - 2-dose childhood series) Varicella (1 of 2 - 2-dose childhood series) [facility] End: 09-03-2020 Genetic Sendout: CancerNext Panel with [facility] Genetic Sendout: CancerNext Panel with [facility] Lab Timed Hx of ovarian cancer History of colon polyps 1 Occurrences starting 09/03/2020 until 09/03/2020 [facility] Comment on above: 1 Occurrences starti ng 09/03/2020 until 09/03/2020 Genetic Sendout: CancerNext Panel with [facility] Genetic Sendout: CancerNext Panel with [facility] Lab Routine Hx of ovarian cancer History of colon polyps 09/03/2020 1:46 PM EST [facility] Immunizations Immunization Date Immunization Notes Care Provider Fa cility 04-06-2021 Covid (Pfizer) [facility] 03-16-2021 Covid (Pfizer) [facility] Payers Date Payer Category Payer Self-pay [id number] 2024 Private Health Insurance [id number] 2015 Unknown [id number] 2015 Unknown [employer]ARA CRAIG BC BS PPO [id number] 2015-Present [address] [place] [address] [id number] Unknown [id number] Unknown [id number] Unknown [id number] Social History Date Type Detail Facility Start: 08-28-2020 End: 07-02-2021 Tobacco smoking status NHIS Never smoker [facility] Start: 08-28-2020 Tobacco use and exposure Never used [facility] Start: 1970 Sex Assigned At Not on file A [facility] Exposure to SARS-CoV -2 (event) Not sure [facility] Start: 07-02-2021 Tobacco smoking stat us MOIS Unknown if ever smoked [facility] Start: 07-02-2020 Non-smoker [facility] Start: 1970 Sex Assigned At Female W [facility] Start: 01-14-2025 Sex Female (finding) [facility] Evaluation note Note Date & Type Note Facility Evaluation note No assessment information availa ble [facility] Work Phone: Evaluation note Note Date & Type Note Facility Evaluation note Diagnosis Onset Date History of ovarian cancer ch ronic [facility] Work Phone: Reason for referral (narrative) Note Date & Type Note Facility Reason for referral (narrative) No reason for referral information available [facility] Work Phone: Summary Purpose Family History Relationship Condition Age at Onset Recorded Date/T andre father Leukemia Unknown Advance Directives Documents on File Type Date Recorded 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 Reason for Referral Status Reason Specialty Diagnoses / Procedures Referred By Contact Referred To Contact [facility] Required Lab Diagnoses Hx of ovarian cancer History of colon polyps Procedures Genetic Sendout: CancerNext Panel with Ramesh Lyman MD [address] [place] [address], [address] [place] [address] Assessments Diagnosis Hx of ovarian cancer Personal history of malignant neoplasm of ovary History of colon polyps Personal history of colonic polyps Chief Complaint and Reason for Visit Chief Complaint INT LABS 1YR LABS PRIOR Reason for Visit History of ovarian c ancer Chief Complaint Admit Date SCREENING January 04, 2025 1:0 4pm Additional Source Comments INFORMATION SOURCE (unrecogn ized section and content) DATE CREATED AUTHOR 04/14/2018 [employer] ([place]) DATE CREATED AUTHOR AUTHOR'S ORGANIZ ATION 01/15/2025 [facility] Reason for Visit (unrecogniz ed section and content) Status Reason Specialty Diagnoses / Procedures Referred By Contact Referred To Contact [facility] Required Lab Diagnoses Hx of ovarian cancer History of colon polyps Procedures Genetic Sendout: CancerNext Panel with Ramesh Lyman MD [address] [place] [address], [address] [place] [address] Goals (unrecognized section and content) Goals may be documented in a n alternate sectionGoals may be documented in an alternate sectionGoals may be documented in an alternate section Care Teams (unrecognized sec tion and content) Team Status: Active Member Role Status Dates No Primary Care Physician Family Provider Active No Primary Care Physician Primary Care Provider Active Team Status: Inactive Member Role Status Dates Dr. Venkat Faria MD Attending Provider Active No Primary Care Physician Primary Care Provider, Refer ring Provider Active Team Status: Inactive Member Role Status Dates No Primary Care Physician Primary Care Provider Active Dr. Venkat Faria MD Attending Provider, Referring Pro vider Active Team Status: Active Member Role Status Dates Anita Aden MD Primary Care Provider Active Team Status: Inactive Member Role Status Dates Anita Aden MD Primary Care Provider Active St art: January 04, 2025 End: January 04, 2025 Anita Aden MD Attending Provider Active Start : January 04, 2025 End: January 04, 2025 Anita Aden MD Referring Provider Active Start : January 04, 2025 End: January 04, 2025 FOR RECORDS PERTAINING TO PATIENTS WHO ARE OR HAVE BEEN ENROLLED IN A CHEMICAL DEPENDENCY/SUBSTANCEABUSE PROGRAM, SOME INFORMATION MAY BE OMITTED. This clinical summary was aggregated from multiple sources. Caution should be exercised in using it in the provision of clinical care. This summary normalizes information from multiple sources, and as a consequence, information in this document may materially change the coding, format and clinical context of patient data. In addition, data may be omitted in some cases. CLINICAL DECISIONS SHOULD BE BASED ON THE PRIMARY CLINICAL RECORDS. [facility] [email or web address] [facility]. provides no warranty or guarantee of the accuracy or completeness of information in this document."
[2025-06-08 09:44] LABS: Hematocrit 38.8 % (37-47); Hemoglobin 13.4 g/dL (12.0-15.0); Immature Granulocytes Count 0.000 X10^3/uL (0.0-0.0); Mean Corp Hgb Conc 34.5 g/dL (32-36); Mean Corpuscular Volume 87.8 fL (81-99); Mean Platelet Vol. 10.6 fl (6.2-12.0); NRBC Flagged by Analyzer 0 % (0-5); Platelet Count 250 K/mm3 (150-450); RBC Distribution Width CV 11.9 % (11.6-14.6); RBC Distribution Width SD 38.5 fl (35.1-43.9); Red Blood Count 4.42 M/mm3 (4.2-5.4); White Blood Count 4.4 K/mm3 (4.4-11.0)
[2025-06-08 11:16] LABS: AST(SGOT) 18 U/L (<=31); Alanine Aminotransfer ALT/SGPT 17 U/L (<=34); Albumin, Serum 4.3 g/dL (3.5-5.0); Alkaline Phosphatase 52 U/L (35-104); Anion Gap 13 (5-15); BUN 14 mg/dL (4-19); BUN/Creat Ratio 19.9 RATIO (10-20); Calcium,Total 9.4 mg/dL (7.6-11.0); Carbon Dioxide 21.2 mmol/L (21.0-32.0); Chloride 107 mmol/L (98-108); Globulin 2.5 g/dL (2.2-4.2); Glucose 95 mg/dL (70-99); LDH 170 U/L (84-246); Potassium 4.2 mmol/L (3.3-5.1)
[2025-06-08 17:09] LABS: Xtra Tube EP Lab EXTRA TUBE
== END | disposition home or self-care (01) ==
LOC: LAB 08:59
PROVIDERS: PCP Family Medicine; Referring Provider Internal Medicine Medical Oncology; Visit Provider Internal Medicine Medical Oncology
DX: Z85.43 Personal history of malignant neoplasm of ovary (principal)
CPT/HCPCS: 36415; 80053; 83615; 85025; 86304